=== PATIENT | female | born 1995 | race Caucasian/White ===

== ENCOUNTER 2017-10-05 20:15 | Emergency (ER) | payer MEDICAID, SELFPAY ==
[2017-10-05 21:27] VITALS: BP 128/91; PULSE 100; RESP 18; TEMP 37.7; O2SAT 100; BMI 21.0
--- NOTE | 2017-10-05 21:28 | HMH.EDUTC ---
[facility] [place]: Influenza Disposition: Home, Self-Care Condition on Discharge: Good Instructions: Influenza Additional Instructions: ? Start Tamiflu today if you are going to take it. Discussed risk and possible benefits. ? Lots of rest ? Increase Fluids water, Gatorade, powerade, pedialyte,if /toddler/child ? Alternate Tylenol and / or ibuprofen as discussed for fever, aches, chills x 24 hours without medication for symptoms ? Follow up IMMEDIATELY for new or worsening Symptoms OR no noticeable improvement over the next 48-72 hours, 911 for difficulty or breathing ? You or your child area contagious until no fever, aches, chills for 24 hours with medication for symptoms Prescriptions: Brompheniramine/Pseudoephed/Dm [Bromfed DM Cough Syrup 5mL] 10 ml PO Q4H PRN #200 syrup PRN Reason: Cough Oseltamivir Phosphate [Tamiflu 75mg Capsule] 75 mg PO BID #10 capsule Referrals: Fouzia Sherwood PA [Primary Care Provider] - Time of Disposition: 21:33 Medical Decision Making Vital Signs: 10/05/17 21:27 Temperature 99.9 F H Temperature Source Temporal Artery Scan Pulse Rate [Right] 100 H Respiratory Rate 18 Blood Pressure [Right Arm] 128/91 Blood Pressure Mean [Right Arm] 103 Blood Pressure Source [Right Arm] Automatic Cuff Blood Pressure Position [Right Arm] Sitting 02 Sat by Pulse Oximetry 100 Oxygen Delivery Method Room Air - Lab Data Lab Results 10/05/17 21:23: Influenza Type A Ag Negative, Influenza Type B Ag Positive A - Zak Inquiry Pt receiving controlled substance: No Zak was queried for this patient: No [facility] [place] - General Stated complaint: possible flu - History of Present Illness Provider Complaint: Patient state that she has not been feeling well for several days State that she was recently treated for sinus infection but has continued to get worse States that she has been having fever, body aches and sore throat along with cough that has worsened since yesterday - Related Data Previous Rx's Medication Instructions Recorded Brompheniramine/Pseudoephed/Dm 10 ml PO Q4H PRN #200 syrup 10/05/17 [Bromfed DM Cough Syrup 5mL] Oseltamivir Phosphate [Tamiflu 75 mg PO BID #10 capsule 10/05/17 75mg Capsule] Allergies Allergy/AdvReac Type Severity Reaction Status Date / Time miconazole [MICONAZOLE] Allergy Unknown I-ITCHING Unverified 09/20/17 14:54 [facility] History - *Social History Smoking Status: Never smoker Alcohol Intake: never Physical Exam - General General appearance: alert, in no apparent distress - Expanded ENT Exam Comment: Throat red, irritated - Respiratory Respiratory exam: Present: normal lung sounds bilaterally. Absent: respiratory distress - Cardiovascular Cardiovascular exam: Present: regular rate, normal rhythm. Absent: JVD - Neurological Exam Neurological exam: Present: alert, oriented X3
[2017-10-05 21:30] LABS: UTC Influenza A Antigen Negative (Negative); UTC Influenza B Antigen Positive (Negative)
--- NOTE | 2017-10-05 21:33 | ED_ITS ---
[facility] [place] Clinical Impression: Influenza Disposition: Home, Self-Care Condition on Discharge: Good Instructions: Influenza Additional Instructions: ? Start Tamiflu today if you are going to take it. Discussed risk and possible benefits. ? Lots of rest ? Increase Fluids water, Gatorade, powerade, pedialyte,if /toddler/child ? Alternate Tylenol and / or ibuprofen as discussed for fever, aches, chills x 24 hours without medication for symptoms ? Follow up IMMEDIATELY for new or worsening Symptoms OR no noticeable improvement over the next 48-72 hours, 911 for difficulty or breathing ? You or your child area contagious until no fever, aches, chills for 24 hours with medication for symptoms Prescriptions: Brompheniramine/Pseudoephed/Dm [Bromfed DM Cough Syrup 5mL] 10 ml PO Q4H PRN # 200 syrup PRN Reason: Cough Oseltamivir Phosphate [Tamiflu 75mg Capsule] 75 mg PO BID #10 capsule Referrals: Fouzia Sherwood PA [Primary Care Provider] - Time of Disposition: 21:33 Medical Decision Making Vital Signs: 10/05/17 21:27 Temperature 99.9 F H Temperature Source Temporal Artery Scan Pulse Rate [Right] 100 H Respiratory Rate 18 Blood Pressure [Right Arm] 128/91 Blood Pressure Mean [Right Arm] 103 Blood Pressure Source [Right Arm] Automatic Cuff Blood Pressure Position [Right Arm] Sitting 02 Sat by Pulse Oximetry 100 Oxygen Delivery Method Room Air - Lab Data Lab Results 10/05/17 21:23: Influenza Type A Ag Negative, Influenza Type B Ag Positive A - Zak Inquiry Pt receiving controlled substance: No Zak was queried for this patient: No [facility] [place] HPI - General Stated complaint: possible flu - History of Present Illness Provider Complaint: Patient state that she has not been feeling well for several days State that she was recently treated for sinus infection but has continued to get worse States that she has been having fever, body aches and sore throat along with cough that has worsened since yesterday - Related Data Previous Rx's Medication Instructions Recorded Brompheniramine/Pseudoephed/Dm 10 ml PO Q4H PRN #200 syrup 10/05/17 [Bromfed DM Cough Syrup 5mL] Oseltamivir Phosphate [Tamiflu 75 mg PO BID #10 capsule 10/05/17 75mg Capsule] Allergies Allergy/AdvReac Type Severity Reaction Status Date / Time miconazole [MICONAZOLE] Allergy Unknown I-ITCHING Unverified 09/20/17 14:54 [facility] History - *Social History Smoking Status: Never smoker Alcohol Intake: never Physical Exam - General General appearance: alert, in no apparent distress - Expanded ENT Exam Comment: Throat red, irritated - Respiratory Respiratory exam: Present: normal lung sounds bilaterally. Absent: respiratory distress - Cardiovascular Cardiovascular exam: Present: regular rate, normal rhythm. Absent: JVD - Neurological Exam Neurological exam: Present: alert, oriented X3
== END 2017-10-05 21:41 | disposition home or self-care (01) ==
PROVIDERS: Emergency Provider Nurse Practitioner; Family Provider Physician Assistant; PCP Physician Assistant
DX: J11.1 Influenza due to unidentified influenza virus with other respiratory manifestations (principal); Z88.8 Allergy status to other drugs, medicaments and biological substances
CPT/HCPCS: 87276; 87804; 99202

== ENCOUNTER → 2018-07-24 16:00 | Outpatient (CLI) | payer MEDICAID, SELFPAY ==
[2018-07-26 15:55] LABS: HIV Screen 4th Generation wRfx Non Reactive (Non Reactive); HSV 2 IgG, Type Spec <0.91 index (0.00-0.90); Hepatitis C Antibody <0.1 s/co ratio (0.0-0.9)
[2018-07-28 06:41] LABS: Neisseria gonorrhoeae, NAA Negative (Negative)
== END ==
PROVIDERS: PCP Physician Assistant; Visit Provider Nurse Practitioner Obstetrics & Gynecology
DX: Z11.3 Encounter for screening for infections with a predominantly sexual mode of transmission (principal)
CPT/HCPCS: 36415; 86695; 86696; 86703; 86790; 87380; 87491; 87591; G0432

== ENCOUNTER → 2018-09-25 10:42 | Outpatient (CLI) | payer MEDICAID, SELFPAY ==
--- NOTE | 2018-09-25 10:43 | US_ITS ---
US transvaginal HISTORY: Pelvic pain worse during cycle ITS.REASON: US T/V- Pelvic Pain ORDERING PHYSICIAN: Booker Bullock MD PATIENT AGE: 22 years Comparison: None FINDINGS: The uterus is 6 x 3 x 4 cm with a combined endometrial thickness of 4 mm. The uterus has an unremarkable appearance. Left ovary is 2 x 2 centimeters with blood flow demonstrated. Unremarkable. There is a 5 cm cystic lesion in the right adnexa which has a complex appearance with some debris and increased echogenicity along the anterior wall. No cul-de-sac fluid apparent. IMPRESSION: 5 cm complex left ovarian cyst with debris and increased echogenicity along the anterior wall. Suggest 6-8 week follow-up to confirm resolution. If this does not resolve then MRI may be needed.
== END ==
PROVIDERS: PCP Physician Assistant; Visit Provider Nurse Practitioner Obstetrics & Gynecology
DX: R10.2 Pelvic and perineal pain (principal)
CPT/HCPCS: 76830

== ENCOUNTER → 2018-10-17 15:02 | Outpatient (CLI) | payer MEDICAID, SELFPAY ==
[2018-10-17 15:30] LABS: Basophils % 0.5 % (0.1-2.0); Eosinophils # 0.1 K/mm3 (0.0-0.4); Eosinophils % 1.3 % (0.1-12.0); Hematocrit 40.8 % (37.0-47.0); Hemoglobin 13.6 g/dL (12.2-16.2); Lymphocytes # 1.9 K/mm3 (0.7-4.5); Lymphocytes % 25.8 % (10-50); Mean Corpuscular HGB Conc 33.4 g/dL (31.8-35.4); Mean Corpuscular Hemoglobin 31.8 pg (27.0-31.2); Mean Corpuscular Volume 95.2 fl (81-99); Mean Platelet Volume 6.6 fl (7.4-10.4); Monocytes # 0.2 K/mm3 (0.1-1.0); Monocytes % 3.2 % (1.7-9.3); Neutrophils # 5.1 K/mm3 (1.8-7.8); Neutrophils % 69.3 % (37.0-80.0); Platelet Count 294 K/mm3 (142-424); Red Blood Count 4.28 M/mm3 (4.20-5.40); Red Cell Distribution Width 12.4 % (11.5-17.5); White Blood Count 7.4 K/mm3 (4.8-10.8)
[2018-10-17 16:14] LABS: Blood Urea Nitrogen 15 mg/dL (7-18); Calcium 8.5 mg/dL (8.5-10.1); Carbon Dioxide 21 mmol/L (21.0-32.0); Chloride 104 mmol/L (98-107); Creatinine,Serum 0.85 mg/dL (0.55-1.02); Estimated Glomerular Filt Rate 82 ml/min (>60); GFR (African American) 99 ML/MIN (>60); Glucose 97 mg/dL (74-106); Sodium 139 mmol/L (136-145)
[2018-10-17 16:52] LABS: HCG Qualitative, Serum Negative (Negative)
== END ==
PROVIDERS: Visit Provider Nurse Practitioner Obstetrics & Gynecology
DX: Z01.818 Encounter for other preprocedural examination (principal)
CPT/HCPCS: 36415; 80048; 84703; 85025

== ENCOUNTER → 2019-03-15 16:11 | Outpatient (CLI) | payer MEDICAID, SELFPAY ==
--- NOTE | 2019-03-15 16:17 | XR_ITS ---
XR shoulder RT min 2V HISTORY: ITS.REASON: pain ORDERING PHYSICIAN: Jennifer Sunshine APRN PATIENT AGE: 23 years Comparison: None FINDINGS: No fracture or dislocation. No lytic or blastic change. There is normal mineralization. The joint spaces are well-preserved. No significant degenerative/arthritic changes. No erosive changes evident. IMPRESSION: Negative, no acute finding
--- NOTE | 2019-03-15 16:17 | XR_ITS ---
EXAM: XR cervical spine 3V HISTORY: ITS.REASON: pain ORDERING PHYSICIAN: Jennifer Sunshine APRN PATIENT AGE: 23 years COMPARISON: None FINDINGS: Normal alignment. No fracture or dislocation. No lytic or blastic change. There is mild head tilt toward the left and there is some straightening of the cervical lordosis nonspecific No significant degenerative change. The disc spaces are preserved. IMPRESSION: No acute finding
== END ==
PROVIDERS: PCP Nurse Practitioner Family; Visit Provider Nurse Practitioner Family
DX: M25.511 Pain in right shoulder (principal); M54.2 Cervicalgia
CPT/HCPCS: 72040; 73030

== ENCOUNTER 2019-04-19 15:00 | Outpatient (RCR) | payer MEDICAID, SELFPAY ==
--- NOTE | 2019-03-27 13:53 | HMH.PTOPEV ---
PT Outpatient Evaluation Rehab PT Outpatient Evaluation Start: 03/27/19 13:00 Freq: Status: Active Protocol: Document 03/27/19 13:37 CONCEPCIÓN (Rec: 03/27/19 13:53 PHORNE [id number]) Electronically Signed By Brian Alanis, PT 03/27/19 13:37 Outpatient Therapy Subjective History Subjective History Pt is 23 yowf who presents with c/o pain in the neck and right UE x ~ 1 mo S/P my mattress fell on me. Pt states that she was lifting her mattress and box springs with her left arm and trying to fix the bed slats with her right hand when the boxsprings slipped from her hand and landed on her right shld. She reports having pain ever since with burning and tingling into the right forearm and hand. She had x-ray performed of the right shld and c-spine with no abnormalities noted. She states, The shots they gave me helped a lot, but I didn't take the steroid the gave me to take. PMH: recent laprascopic surgery. Chief Complaint Pain,Weakness,Decreased [employer] Strength Symptom Type Sharp,Stabbing,Burning, Tingling Symptoms Relieved By Rest/Positioning Symptoms Aggravated By Physical Activity,Lifting Prior Functional Limitations None Current Functional Limitations Reaching,Lifting,Housework, Sleeping,Recreation Activity Symptom Description Constant but Variable Level of pain today (0-10) 4 Pain scale - at its worst (0-10) 9 Cervical Eval Palpation Cervical/Thoracic Palpation Findings Tenderness Posture Head/C-Spine Posture Sitting Position Neutral Position Head/C-Spine Posture Standing Position Neutral Position Passive Joint Mobility Cervical PIVM WNL: R OA L OA R AA L AA R C2/3 L C2/3 R C3/4 L C3/4 R C4/5 L C4/5 R C5/6 L C
== END 2019-04-19 15:05 | disposition home or self-care (01) ==
LOC: PT 15:00
PROVIDERS: Visit Provider Nurse Practitioner Family
DX: M25.511 Pain in right shoulder (principal); M54.2 Cervicalgia
CPT/HCPCS: 97010; 97014; 97110; 97140; 97163; G0283

== ENCOUNTER → 2019-07-24 12:59 | Outpatient (CLI) | payer MEDICAID, SELFPAY ==
--- NOTE | 2019-07-24 | XR_ITS ---
PROCEDURE: XR SHOULDER RT MIN 2V RIGHT SHOULDER ARTHROGRAM CLINICAL INDICATION: ARTHROGRAM Right shoulder pain with limited range of motion COMPARISON: MR SHOULDER RT W CON from 07/24/2019 FINDINGS: Technique: After timeout, following obtaining informed consent under aseptic conditions with local anesthesia with 1 percent buffered lidocaine, 22 gauge needle is inserted into the right shoulder joint via of the anterior approach. Approximately 10 mL of a mixture of Optiray 320, gadolinium, and lidocaine was injected into the capsule freely without complication or obvious extravasation.. The patient tolerated the procedure well without evidence of immediate complications and was and set to the MRI suite where MR arthrogram was performed. Internal and external rotation images are performed following exercise of the patient's shoulder. There was normal localization of contrast. No evidence of rotator cuff tear or adhesive capsulitis. IMPRESSION: Uneventful fluoroscopic guided right shoulder arthrogram showing no evidence of rotator cuff tear. Please see MR arthrogram report for further detail Dictated by: Alexsander Limon MD 07/24/2019 16:48 Electronically signed by Alexsander Limon MD in [place] 07/25/2019 05:58
--- NOTE | 2019-07-24 13:05 | MR_ITS ---
PROCEDURE: MR SHOULDER RT W CON CLINICAL INDICATION: evaluate for rotator cuff tear Shoulder pain in weakness, limited range of motion COMPARISON: IR ARTHROGRAM SHOULDER RT from 07/24/2019 XR SHOULDER RT MIN 2V from 07/24/2019 TECHNIQUE: Routine multiplanar multi echo sequences are performed following the intra-articular injection of a mixture of iodinated contrast, gadolinium, and lidocaine. Please see shoulder arthrogram report from the same day FINDINGS: There is no evidence of a full-thickness or complete rotator cuff tear. There is some mild thickening of the supraspinatus tendon with slight increase in T2 signal distally suggesting tendinopathy/tendinosis. The infraspinatus tendon, subscapularis tendon, and teres minor tendons have an unremarkable appearance. The signal intensity of the intra-articular fluid has a somewhat atypical appearance showing slight decreased intensity on the T1 fat sat and non-fat sat images and demonstrates marked decreased T2 signal. This is of questionable significance but could be seen with some acute intra-articular hemorrhage. One would not expect hyperacute hemorrhage to have this appearance. There was no complications apparent during the arthrogram. No obvious labral tear. There is a zone of increase T1 signal involving the cartilage of the glenoid of questionable significance. The bicipital tendon is in place. No fracture or dislocation. IMPRESSION: 1. There is some minimal surface irregularity involving the inferior surface of the supraspinatus tendon. This is of questionable clinical significance. A complete or full-thickness tear is not identified. No labral tear apparent. 2. Unusual signal intensity of the intra-articular fluid of uncertain significance but could be related underlying blood within the joint. Dictated by: Alexsander Limon MD 07/26/2019 10:49 Electronically signed by Alexsander Limon MD in [place] 07/26/2019 10:49
== END ==
PROVIDERS: PCP Physician Assistant; Visit Provider Orthopaedic Surgery
DX: M25.511 Pain in right shoulder (principal); S49.91XA Unspecified injury of right shoulder and upper arm, initial encounter
CPT/HCPCS: 73030; 73040; 73222; Q9967

== ENCOUNTER 2019-08-03 13:00 | Outpatient (RCR) | payer MEDICAID, SELFPAY ==
--- NOTE | 2019-06-18 15:31 | HMH.OTOPEV ---
OT Inpatient Evaluation Rehab OT Outpatient Eval Start: 06/18/19 15:11 Freq: Status: Active Protocol: Document 06/18/19 15:12 RMARSHALL (Rec: 06/18/19 15:28 [facility] [id number] Electronically Signed By Prince Tieno OT 06/18/19 15:12 Outpatient Therapy Subjective History Subjective History Pt is a 23 year old female who reports to therapy for inital evaluation to right shoulder. Pt explains she injured her shoulder in Jan, 2019 while trying to lift a mattress and box spring. Both the mattress and box spring fell onto the right shoulder causing immediate pain. Pt did completed physical therapy, but did stop participating. Pt does demonstrate with decreased AROM and strength at right shoulder. Pt will continue to be seen in order to address all deficits. Chief Complaint Pain,Stiff,Weakness Symptom Type Ache,Throb,Sharp,Dull,Burning, Numbness,Shooting Symptoms Relieved By Rest/Positioning Symptoms Aggravated By Physical Activity,Twisting, Lifting Prior Functional Limitations None Current Functional Limitations Reaching,Lifting,Housework, Dressing,Sleeping,Recreation Activity Symptom Description Constant but Variable Level of pain today (0-10) 7 Pain scale - at its best (0-10) 4 Pain scale - at its worst (0-10) 10 Shoulder/Elbow Eval Shoulder Objective Measurements Shoulder ROM Right Shoulder Abduction Active Range of 94 degrees Motion (degrees) Shoulder Flexion Active Range of Motion 110 degrees (degrees) Query Text: Shoulder External Rotation Active Range 62 degrees of Motion (degrees) Shoulder Internal Rotation Active Range 65 degrees of Motion (degrees) pain with active ROM shoulder exam right standard pain with passive ROM shoulder exam right standard decreased ROM shoulder exam standard right full ROM shoulder exam standard left Shoulder MMT Shoulder Abduction Strength Grade 4- Good- Shoulder Extension Strength Grade 4- Good- Shoulder Flexion Strength Grade 3+ Fair+ Shoulder External Rotation Strength 3+ Fair+ Grade Shoulder Internal Rotation S
== END 2019-08-03 13:05 | disposition home or self-care (01) ==
LOC: OT 13:00
PROVIDERS: PCP Nurse Practitioner Family; Visit Provider Nurse Practitioner Family
DX: M25.511 Pain in right shoulder (principal)
CPT/HCPCS: 97014; 97033; 97110; 97140; 97166; G0283

== ENCOUNTER → 2019-08-06 08:58 | Outpatient (POV) | payer MEDICAID, SELFPAY | PROVIDERS: Visit Provider Specialist | DX: M79.641 Pain in right hand (principal); R20.2 Paresthesia of skin | CPT/HCPCS: 95886; 95908 ==

== ENCOUNTER 2019-08-23 12:58 | Outpatient (RCR) | payer MEDICAID, SELFPAY ==
--- NOTE | 2019-08-23 13:38 | HMH.OTOPEV ---
OT Inpatient Evaluation Rehab OT Outpatient Eval Start: 08/23/19 13:27 Freq: Status: Active Protocol: Document 08/23/19 13:27 RMARSHALL (Rec: 08/23/19 13:[facility] [id number][facility] Electronically Signed By Prince Tineo OT 08/23/19 13:27 Outpatient Therapy Subjective History Subjective History Pt is a 23 year old female who was seen previoulsy by therapy. Prior she was unable to complete exercises due to pain; pt decided to hold with therapy until seeing ortho and having MRI completed. Pt was diagnsoed with R shoulder tendinopathy and had an injection from ortho. Pt continues to demonstrate with decreased AROM and strength at right shoulder. Pt did inform therapist her pain has improved slightly since beginning treatment with ortho . Pt will continue to be seen twice a week in order to address all deficits. Chief Complaint Pain,Stiff,Weakness Symptom Type Ache,Throb,Sharp,Dull,Shooting Symptoms Relieved By Nothing Symptoms Aggravated By Physical Activity,Lifting Prior Functional Limitations None Current Functional Limitations None,Reaching,Lifting, Housework,Dressing,Driving, Sleeping,Recreation Activity, Bending/Stooping Symptom Description Constant but Variable Level of pain today (0-10) 3 Pain scale - at its best (0-10) 2 Pain scale - at its worst (0-10) 10 Shoulder/Elbow Eval Shoulder Objective Measurements Shoulder ROM Right Shoulder ROM Limitations Muscle Weakness,Pain Shoulder Abduction Active Range of 100 degrees Motion (degrees) Shoulder Flexion Active Range of Motion 100 degrees (degrees) Query Text: Shoulder External Rotation Active Range 60 degrees of Motion (degrees) Shoulder Internal Rotation Active Range 58 degrees of Motion (degrees) pain with active ROM shoulder exam right standard pain with passive ROM shoulder exam right standard decreased ROM shoulder exam standard right Shoulder MMT Shoulder Abduction Strength Grade 3+ Fair+ Shoulder Extension Strength Grade 3+ Fair+ Shoulder Flexion Strength Grade 3+ Fair+ Shoulder External Rotati
== END 2019-08-23 12:59 | disposition home or self-care (01) ==
LOC: OT 12:58
PROVIDERS: Visit Provider Orthopaedic Surgery
DX: S49.91XA Unspecified injury of right shoulder and upper arm, initial encounter (principal); M25.511 Pain in right shoulder; R20.2 Paresthesia of skin
CPT/HCPCS: 97165

== ENCOUNTER → 2019-11-13 13:25 | Outpatient (CLI) | payer MEDICAID, SELFPAY ==
--- NOTE | 2019-11-13 13:26 | US_ITS ---
PROCEDURE: US TRANSVAGINAL CLINICAL INDICATION: pelvick pain Pelvic pain COMPARISON: TRANVAG US transvaginal from 09/25/2018 FINDINGS: UTERUS: 6cm x 3cmx 3cm with a combined endometrial thickness of 2.9mm LEFT OVARY: [id number] with a volume of 7.8ml. RIGHT OVARY: [id number] with a volume of 4.6ml. There are follicles on the left ovary including a 2 x 0.7 cm cyst. Blood flow is present bilaterally. Follicles are present on the right ovary is well with a 1.3 cm cyst. IMPRESSION: Small bilateral ovarian follicles with 2 cm left ovarian cyst and 1 cm right ovarian cyst Dictated by: Alexsander Limon MD 11/13/2019 17:27 Electronically signed by Alexsander Limon MD in [place] 11/13/2019 17:27
== END ==
PROVIDERS: PCP Physician Assistant; Visit Provider Nurse Practitioner Obstetrics & Gynecology
DX: R10.2 Pelvic and perineal pain (principal)
CPT/HCPCS: 76830

== ENCOUNTER → 2020-02-29 12:48 | Outpatient (CLI) | payer OTHER, SELFPAY ==
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
== END ==
PROVIDERS: PCP Physician Assistant; Visit Provider Physician Assistant
DX: M54.10 Radiculopathy, site unspecified (principal)
CPT/HCPCS: 72148; 76376

== ENCOUNTER 2020-04-29 15:00 | Outpatient (RCR) | payer OTHER, MEDICAID, SELFPAY ==
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
== END 2020-04-29 15:47 | disposition home or self-care (01) ==
LOC: PT 15:00
PROVIDERS: Visit Provider Nurse Practitioner Family
DX: M54.42 Lumbago with sciatica, left side (principal); G89.29 Other chronic pain; Z04.1 Encounter for examination and observation following transport accident
CPT/HCPCS: 97010; 97016; 97110; 97113; 97163

== ENCOUNTER 2020-08-17 16:56 | Emergency (ER) | payer MEDICAID, SELFPAY ==
[2020-08-17 17:10] VITALS: BP 124/82; PULSE 74; RESP 14; TEMP 36.9; O2SAT 100; BMI 19.0
--- NOTE | 2020-08-17 17:15 | HMH.EDUTC ---
[facility] [place] Disposition Clinical Impression: Encounter for laboratory testing for COVID-19 virus Disposition: Home, Self-Care Condition on Discharge: Good Instructions: Preventing the Spread of Coronavirus Discharge Instructions Additional Instructions: *Monitor Temp, Over the counter Motrin or Tylenol as directed/as needed Tylenol every 4 hours and Motrin every 6 hours (as long as your family doctor has told you that you can take it) for fever or pain. and straight to ER if unable to lower temp less than 101.0 after medication given *Warm salt water gargles may help to soothe the throat *Throat Lozenges *Warm fluids like tea with honey may help to soothe the throat *Sleep elevated *Humidifier/Vaporizer Follow up IMMEDIATELY for new or worsening symptoms or no Noticeable improvement over the next 48-72 hours. 911 for difficulty breathing or swallowing You was tested for today for COVID19 your test result should be back in the next 24-48 hours, you may call to the [facility] tomorrow to see if your test results are back and the result [phone] You was given a handout with instructions for Self Quarantine and Self isolation for while you wait on test results and what to do if they are positive If you are positive the Health Dept will be contacting you also Referrals: Fouzia Sherwood PA [Primary Care Provider] - As needed Forms: Work/School Release Time of Disposition: 17:16 Medical Decision Making - Zak Inquiry Pt receiving controlled substance: No Zak was queried for this patient: No Vital Signs: 08/17/20 17:10 Temperature 98.5 F Temperature Source Oral Pulse Rate [Left Radial] 74 Respiratory Rate 14 Blood Pressure [Right Arm] 124/82 Blood Pressure Mean [Right Arm] 96 Blood Pressure Source [Right Arm] Automatic Cuff Blood Pressure Position [Right Arm] Sitting 02 Sat by Pulse Oximetry 100 Oxygen Delivery Method Room Air [facility] [place] HPI - General Stated complaint: wants Covid test Time Seen by Provider: 08/17/20 17:15 Mode of Arrival: Ambulatory Source of Information: Patient Limitations: No Limitations Description of Symptoms (Recalled from Triage Doc. by RN): pt states her brother tested positive for covid, hasn't been in direct contact HEENT Symptoms (Recalled from RN notes): No Resp Symptoms (Recalled from RN notes): No Skin Symptoms (Recalled from RN notes): No MS Symptoms (Recalled from RN notes): No Functional Status (Recalled from RN notes): wnl - History of Present Illness Provider Complaint: Patient states that she came in to get a COVID test States that her brother recently tested positive for COVID but she hasnt been around him but has been around other family members and wanted to get tested to see if she has it - Related Data Home Medications Medication Instructions Recorded Confirmed No Known Home Medications 08/17/20 08/17/20 Allergies Allergy/AdvReac Type Severity Reaction Status Date / Time miconazole [MICONAZOLE] Allergy Unknown I-ITCHING Verified 08/17/20 17:15 metronidazole [From Flagyl] Allergy Verified 08/17/20 17:15 - Worker's Comp Is this a Worker's Comp case?: No Is this an [facility] Worker's Comp?: No Is this a [place] Worker's Comp?: No [facility] History - Hepatitis A Screen Drug use history?: No High risk sexual behaviors?: No History of sexually transmitted infection?: No Currently employed?: No Childcare worker?: No Do you have indoor plumbing?: Yes Do you have electricity?: Yes Attestation statement:: This patient has been screened for Hepatitis A risk factors. I have reviewed the patient's past medical history: Yes Medical History: Reports:: Anxiety, Asthma Denies:: Cancer, Diabetes Mellitus Type 1, Diabetes Mellitus Type 2, Internal Pacemaker, MRSA, Seizures Other Medical History: Denies: Blood Transfusion Reaction Laterality Cases: Bilateral: Myringotomy (Ear Tubes), Tonsillectomy Other Surgeries: Yes: Appendectomy, Cholecystectomy, Diagnostic Lap, Ot
[2020-08-17 17:16] VITALS: BP 124/82; PULSE 74; RESP 14; TEMP 36.9; O2SAT 100
== END 2020-08-17 17:21 | disposition home or self-care (01) ==
PROVIDERS: Emergency Provider Nurse Practitioner; PCP Physician Assistant
DX: U07.1 COVID-19 (principal); J45.909 Unspecified asthma, uncomplicated; F41.9 Anxiety disorder, unspecified; Z88.8 Allergy status to other drugs, medicaments and biological substances
CPT/HCPCS: 99202; U0003

== ENCOUNTER → 2020-11-10 12:57 | Outpatient (CLI) | payer MEDICAID, SELFPAY ==
--- NOTE | 2020-11-10 12:57 | US_ITS ---
PROCEDURE: US TRANSVAGINAL CLINICAL INDICATION: pelvic pain COMPARISON: US US TRANSVAGINAL from 11/13/2019 FINDINGS: The uterus is 6 x 3 x 3 cm with a combined endometrial thickness 8 mm. No uterine mass evident. There is right ovary is 5 x 4 cm. The left ovary is 2 x 2 cm. There is a complex cyst involving the right ovary measuring 4 x 3 cm with internal septations and some debris suggesting a hemorrhagic cyst. No cul-de-sac fluid evident. IMPRESSION: Enlarged right ovary with 4 cm complex cyst which may be a hemorrhagic cyst. Suggest follow-up to confirm resolution Dictated by: Alexsander Limon MD 11/11/2020 06:50 Alexsander Limon MD in [place] 11/11/2020 06:50
== END ==
PROVIDERS: PCP Physician Assistant; Visit Provider Nurse Practitioner Obstetrics & Gynecology
DX: R10.2 Pelvic and perineal pain (principal)
CPT/HCPCS: 76830

== ENCOUNTER 2020-12-09 20:34 | Emergency (ER) | payer MEDICAID, SELFPAY ==
[2020-12-09 20:35] VITALS: BP 132/99; PULSE 75; RESP 20; TEMP 36.9; O2SAT 100; BMI 18.1
[2020-12-09 20:50] LABS: Apearance,Urine Clear (Clear); Color,Urine Dark Yellow (Yellow); Protein,Urine Negative (Negative); Specific Gravity, Urine >= 1.030 (1.005-1.030)
[2020-12-09 20:51] LABS: Glucose,Urine (UA) Negative (Negative); Ketones,Urine Moderate (Negative)
[2020-12-09 20:52] LABS: Bilirubin,Urine 1+ (Negative); Blood, Urine 2+ (Negative); UTC Leukocyte Esterase,Urine 1+ (Negative); UTC Nitrate,Urine Negative (Negative); UTC Pregnancy Test, Urine Negative (Negative); Urobilinogen,Urine 0.2 EU/dl (0.2)
--- NOTE | 2020-12-09 20:58 | HMH.EDUTC ---
[facility] [place] Clinical Impression: Abdominal pain Qualifiers: Abdominal location: generalized Qualified Code(s): R10.84 - Generalized abdominal pain Disposition: Still a Patient Condition on Discharge: Fair Referrals: Jolie Cochran APRN [Nurse Practitioner] - Medical Decision Making - Medical Records Medical records reviewed: No: I reviewed the patient's medical records. - Zak Inquiry Pt receiving controlled substance: No Vital Signs: 12/09/20 20:35 Temperature 98.5 F Temperature Source Oral Pulse Rate [Right Brachial] 75 Respiratory Rate 20 Blood Pressure [Right Arm] 132/99 H Blood Pressure Mean [Right Arm] 110 Blood Pressure Source [Right Arm] Automatic Cuff Blood Pressure Position [Right Arm] Sitting 02 Sat by Pulse Oximetry 100 Oxygen Delivery Method Room Air - Lab Data Lab results reviewed: Yes: I reviewed the patient's lab results. Lab Results 12/09/20 20:37: Urine Color Dark yellow, Urine Appearance Clear, Urine pH 5.0, Ur Specific [place] >= 1.030, Urine Protein Negative, Urine Glucose (UA) Negative, Urine Ketones Moderate, Urine Blood 2+, Urine Nitrate Negative, Urine Bilirubin 1+ A, Urine Urobilinogen 0.2, Ur Leukocyte Esterase 1+ A, Tst Clinic Negative Orders (Tests/Meds): ORDERS Category Date Time Status XR acute abdomen series Stat Exams 12/09/20 20:37 Ordered Medical Decision Narrative: she was transferred to the er due to her abdominal pain, severe tenderness and abdominal distension. [facility] [place] HPI - General Stated complaint: lower abd, No BM for 1 wk Time Seen by Provider: 12/09/20 20:58 Mode of Arrival: Ambulatory Source of Information: Patient, Parent(s) Limitations: No Limitations Description of Symptoms (Recalled from Triage Doc. by RN): PATIENT C/O LOWER ABDOMINAL PAIN WITH NAUSEA. SHE STATES THE PAIN IS SHARP AND RADIATES TO HER BACK. SHE IS VERY TEARFUL AT THIS TIME AND IS RATING HER PAIN 10/10. SHE REPORTS HER LAST BOWEL MOVEMENT WAS APPROX 1 WEEK AGO HEENT Symptoms (Recalled from RN notes): No Resp Symptoms (Recalled from RN notes): No Skin Symptoms (Recalled from RN notes): No MS Symptoms (Recalled from RN notes): No Functional Status (Recalled from RN notes): WNL - History of Present Illness Provider Complaint: She c/o abdominal pain since around 1 hour before she came in here. She currently rates her pain as a 8/10. She states that she has a history of ovarian cyst. She also has trouble with constipation often. She c/o nausea. She denies any vomiting yet. She states that her last bm was around 1 week ago. She often goes several days between bm's, but this is a little longer than her usual. - Related Data Previous Rx's Medication Instructions Recorded levonorgestrel-ethinyl estradiol 1 tab PO DAILY #84 tab 10/16/20 0.1 mg-20 mcg tablet Allergies Allergy/AdvReac Type Severity Reaction Status Date / Time miconazole [MICONAZOLE] Allergy Unknown I-ITCHING Verified 11/04/20 15:02 metronidazole [From Flagyl] Allergy Verified 11/04/20 15:02 - Worker's Comp Is this a Worker's Comp case?: No [facility] History - Hepatitis A Screen Drug use history?: No High risk sexual behaviors?: No History of sexually transmitted infection?: No Currently employed?: No Childcare worker?: No Do you have indoor plumbing?: Yes Do you have electricity?: Yes Attestation statement:: This patient has been screened for Hepatitis A risk factors. I have reviewed the patient's past medical history: Yes Medical History: Reports:: Anxiety, Asthma Denies:: Cancer, Diabetes Mellitus Type 1, Diabetes Mellitus Type 2, Internal Pacemaker, MRSA, Seizures Other Medical History: Denies: Blood Transfusion Reaction Laterality Cases: Bilateral: Myringotomy (Ear Tubes), Tonsillectomy Other Surgeries: Yes: Appendectomy, Cholecystectomy, Diagnostic Lap, Other. No: Pacemaker Amputation: No Fractures: No Comment: cyst removed from left ovary, wisdom teeth remov
--- NOTE | 2020-12-09 21:00 | PC.NURSE ---
PATIENT SENT TO ER PER LIZET AMBROSE APRN FOR FURTHER EVALUATION. REPORT GIVEN TO Deana KEY RN
[2020-12-09 21:02] VITALS: BP 148/88; PULSE 71; RESP 20; TEMP 36.8; O2SAT 97; BMI 18.2
[2020-12-09 21:03] LABS: Microscopic, Urine URINE MICROSCOPIC (MICROSCOPIC)
[2020-12-09 21:05] VITALS: BP 133/87; PULSE 67; O2SAT 98
--- NOTE | 2020-12-09 21:07 | CT_ITS ---
PROCEDURE: CT ABDOMEN PELVIS W CON CLINICAL INDICATION: ABD PAIN Lower abdominal pain COMPARISON: CT ABDPELW/O CT ABD PELVIS W/O CONTRAST from 01/24/2015 MR MR LUMBAR SPINE WO CON from 02/29/2020 TECHNIQUE: IV Contrast: 75ML Isovue 370 Oral Contrast None Axial images obtained with sagittal and coronal reformats. All CT scans at the facility use one or more dose reduction, viz: automated exposure control, ma/kV adjustment per patient size (including targeted exams where dose is matched to indication, i.e. head), or iterative reconstruction technique. FINDINGS: LOWER THORAX: No acute finding ABDOMEN & PELVIS: There are at least 2 small hypoattenuating lesions in the hepatic dome centrally on left measuring up to 3 mm and may represent hepatic cysts. There has been a prior cholecystectomy. The spleen, adrenal glands, and pancreas have an unremarkable appearance. 8 mm hypodensity involves the right kidney possibly due to small cyst. No renal or ureteral calculi. No hydronephrosis. There is a moderate amount of retained colonic feces. Prior appendectomy. No intestinal obstruction or free air. This 12 mm right adnexal cystic lesion with enhancing thin wall. Minimal amount of fluid in the cul-de-sac. No acute bony findings. IMPRESSION: 1. No acute finding. 2. Small right ovarian cyst with thin wall enhancement may represent a corpus luteum cyst. 3. Suspect small right renal cyst which may be confirmed with ultrasound if clinically desired. Dictated by: Alexsander Limon MD 12/10/2020 06:16 Alexsander Limon MD in [place] 12/10/2020 06:16
[2020-12-09 21:14] LABS: Appearance,Urine CLEAR (Clear); Blood, Urine 2+ (Negative); Color,Urine YELLOW (Yellow); Glucose,Urine (UA) Negative (Negative); Ketones,Urine 1+ (Negative); Leukocyte Esterase,Urine 1+ (Negative); Nitrate,Urine Negative (Negative); PH,Urine 5.5 (5.0-8.5); Protein,Urine Negative (Negative); Specific Gravity, Urine >= 1.030 (1.005-1.030); Urobilinogen,Urine 0.2 EU/dl (0.2)
[2020-12-09 21:19] LABS: Basophils # 0.1 K/mm3 (0-0.2); Basophils % 0.5 % (0.1-2.0); Eosinophils # 0.1 K/mm3 (0.0-0.4); Eosinophils % 0.8 % (0.1-12.0); Hematocrit 46.6 % (37.0-47.0); Lymphocytes # 2.3 K/mm3 (0.7-4.5); Mean Corpuscular HGB Conc 32.1 g/dL (31.8-35.4); Mean Corpuscular Hemoglobin 31.8 pg (27.0-31.2); Mean Corpuscular Volume 99.1 fl (81-99); Mean Platelet Volume 7.6 fl (7.4-10.4); Monocytes # 0.2 K/mm3 (0.1-1.0); Monocytes % 2.1 % (1.7-9.3); Neutrophils # 6.9 K/mm3 (1.8-7.8); Neutrophils % 72.7 % (37.0-80.0); Platelet Count 323 K/mm3 (142-424); Red Cell Distribution Width 12.5 % (11.5-17.5); White Blood Count 9.5 K/mm3 (4.8-10.8)
[2020-12-09 21:23] LABS: Bilirubin,Urine Negative (Negative)
[2020-12-09 21:27] LABS: Lipase 34 U/L (23-300)
[2020-12-09 21:28] LABS: Alanine Aminotransferase 14 U/L (12-78); Albumin Level 5.1 g/dl (3.5-5.0); Albumin/Globulin Ratio 1.4 (1.1-1.8); Alkaline Phosphatase 83 U/L (38-126); Amylase 74 U/L (30-110); Anion Gap 15.6 mEq/L (5-15); Aspartate Amino Transferase 26 U/L (14-36); Bilirubin,Total 0.6 mg/dl (0.2-1.3); Blood Urea Nitrogen 11 mg/dl (7-17); Calcium 9.5 mg/dl (8.4-10.2); Carbon Dioxide 22 mmol/L (22.0-30.0); Chloride 105 mmol/L (98-107); Creatinine Clearance Estimated 67 mL/min (50-200); Estimated Glomerular Filt Rate 75 ml/min (>60); GFR (African American) 91 ML/MIN (>60); Globulin 3.6 g/dL (1.3-3.2); Glucose 116 mg/dl (74-100); Potassium 3.6 mmoL/L (3.5-5.1); Sodium 139 mmol/L (136-145); Total Protein,Serum 8.7 g/dl (6.3-8.2)
[2020-12-09 21:34] LABS: C-Reactive Protein 1.4 mg/L (0-4)
[2020-12-09 21:34] LABS: Amorphous Sediment,Urine 1+ /lpf; Bacteria,Urine 2+ /lpf; Calcium Oxalate Crystals,Urine 1+ /lpf; Mucus,Urine 1+ /lpf
[2020-12-09 21:35] VITALS: BP 136/88; PULSE 88; O2SAT 100
[2020-12-09 21:52] LABS: Procalcitonin < 0.030 ng/mL (0.0-2.0)
[2020-12-09 21:59] LABS: Erythrocyte Sedimentation Rate 11 mm/hr (0-20)
[2020-12-09 22:05] VITALS: BP 107/72; PULSE 73; O2SAT 100
--- NOTE | 2020-12-09 23:03 | HMH.EDNVD ---
ED Disposition Clinical Impression: Abdominal pain Qualifiers: Abdominal location: generalized Qualified Code(s): R10.84 - Generalized abdominal pain Ovarian cyst Qualifiers: Laterality: right Qualified Code(s): N83.201 - Unspecified ovarian cyst, right side Disposition: Home, Self-Care Condition on Discharge: Good Instructions: DI for Ovarian Cyst Additional Instructions: call dr bullock this am for follow up Referrals: Jolie Cochran APRN [Nurse Practitioner] - Booker Bullock MD [Staff Physician] - - Critical Care Critical Care Time: No Attestation: On 12/09/20, the high probability of a clinically significant, sudden or life threatening deterioration of the following system(s) required my full and direct attention, intervention and personal management. The time I documented below is in addition to time spent performing reported procedures but includes the following listed in this critical care notation. Medical Decision Making - Medical Records Medical records reviewed: Yes: I reviewed the patient's medical records. - Zak Inquiry Pt receiving controlled substance: No Vital Signs: 12/09/20 20:35 12/09/20 21:02 12/09/20 21:05 Temperature 98.5 F 98.3 F Temperature Source Oral Oral Pulse Rate [Right Brachial] 75 71 67 Respiratory Rate 20 20 Blood Pressure [Right Arm] 132/99 H 148/88 H 133/87 Blood Pressure Mean [Right Arm] 110 108 102 Blood Pressure Source [Right Arm] Automatic Cuff Blood Pressure Position [Right Arm] Sitting 02 Sat by Pulse Oximetry 100 97 98 Oxygen Delivery Method Room Air 12/09/20 21:35 12/09/20 22:05 Temperature Temperature Source Pulse Rate [Right Brachial] 88 73 Respiratory Rate Blood Pressure [Right Arm] 136/88 107/72 L Blood Pressure Mean [Right Arm] 104 83 Blood Pressure Source [Right Arm] Blood Pressure Position [Right Arm] 02 Sat by Pulse Oximetry 100 100 Oxygen Delivery Method - Lab Data Lab results reviewed: Yes: I reviewed the patient's lab results. Lab Results 12/09/20 20:37: Urine Color Dark yellow, Urine Appearance Clear, Urine pH 5.0, Ur Specific [place] >= 1.030, Urine Protein Negative, Urine Glucose (UA) Negative, Urine Ketones Moderate, Urine Blood 2+, Urine Nitrate Negative, Urine Bilirubin 1+ A, Urine Urobilinogen 0.2, Ur Leukocyte Esterase 1+ A, Tst Clinic Negative 12/09/20 20:45: Urine Color Yellow, Urine Appearance Clear, Urine pH 5.5, Ur Specific [place] >= 1.030, Urine Protein Negative, Urine Glucose (UA) Negative, Urine Ketones 1+, Urine Blood 2+, Urine Nitrate Negative, Urine Bilirubin Negative, Urine Urobilinogen 0.2, Ur Leukocyte Esterase 1+ A, Urine RBC 3-5, Urine WBC 5-10, Ur Squamous Epith Cells 3-5, Calcium Oxalate Crystal 1+, Amorphous Sediment 1+, Urine Bacteria 2+, Urine Mucus 1+ 12/09/20 21:00: WBC 9.5, RBC 4.70, Hgb 15.0, Hct 46.6, MCV 99.1 H, MCH 31.8 H, MCHC 32.1, RDW 12.5, Plt Count 323, MPV 7.6, Neut % (Auto) 72.7, Lymph % (Auto) 24.0, [place] % (Auto) 2.1, Eos % (Auto) 0.8, Baso % (Auto) 0.5, Neut # (Auto) 6.9, Lymph # (Auto) 2.3, [place] # (Auto) 0.2, Eos # (Auto) 0.1, Baso # (Auto) 0.1, ESR 11 12/09/20 21:00: Sodium 139, Potassium 3.6, Chloride 105, Carbon Dioxide 22, Anion Gap 15.6 H, BUN 11, Creatinine 0.90, Estimated Creat Clear 67, Estimated GFR 75, Est GFR ( Amer) 91, Glucose 116 H, Calcium 9.5, Total Bilirubin 0.6, AST 26, ALT 14, Alkaline Phosphatase 83, C-Reactive Protein 1.4, Total Protein 8.7 H, Albumin 5.1 H, Globulin 3.6 H, Albumin/Globulin Ratio 1.4, Amylase 74, Procalcitonin < 0.030 12/09/20 21:00: Lipase 34 Result diagrams: 12/09/20 21:00 12/09/20 21:00 Orders (Tests/Meds): ED MEDICATIONS Generic Name Dose Route Start Last Admin Trade Name Freq PRN Reason Stop Dose Admin Sodium Chloride 1,000 mls @ 999 mls/hr 12/09/20 21:15 12/09/20 21:11 Sod Chlor 0.9% 1000ml Bag IV 12/09/20 22:15 999 mls/hr .Q1H1M RUBÉN Administration Sodium Chloride 1,000 mls @ 999 mls/hr 03
[2020-12-10 00:46] VITALS: BP 118/74; PULSE 72; RESP 16; TEMP 36.8; O2SAT 98
== END 2020-12-10 00:50 | disposition home or self-care (01) ==
LOC: UTC 20:38 → ER 20:59
PROVIDERS: Emergency Provider Nurse Practitioner Family; PCP Emergency Medicine
DX: R10.84 Generalized abdominal pain (principal); N83.201 Unspecified ovarian cyst, right side; F41.9 Anxiety disorder, unspecified; J45.909 Unspecified asthma, uncomplicated
CPT/HCPCS: 74177; 80053; 81001; 81003; 81025; 82150; 83690; 84145; 85025; 85651; 86140; 87086; 96365; 96366; 96375; 99283; J2405; Q9967

== ENCOUNTER 2021-03-19 13:30 | Outpatient (RCR) | payer MEDICAID, SELFPAY ==
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
--- NOTE | 2021-01-09 15:58 | HMH.RHREAS ---
Rehab Reassessment Rehab OP Re-assessment Start: 01/09/21 15:45 Freq: Status: Active Protocol: Document 01/09/21 15:46 CONCEPCIÓN (Rec: 01/09/21 15:56 PHOSTACIE [id number]) Electronically Signed By Brian Alanis, PT 01/09/21 15:46 Rehab Re-assessment Subjective Subjective Pt continues to c/o pain with all activities at home ( walking, housework, ADL's), but does feel her walking has improved a little. Objective Objective Notes Lumbar AROM (in deg): Flex= 0- 25, Ext= 0-12, R SB= 0-14, L SB= 0-12. Oswestry Low Back Pain Disability Questionnaire: 57% (Severe Disability Range 41%- 60%) Assessment Progress Assessment Progressing as Expected Assessment Notes Pt has shown some improvements in AROM of lumbar spine overall, but continues to have sereve difficulty in clinic with rolling to/from supine/ prone and squatting. Continues to c/o severe pain with certain tasks and Oswestry score shows severe disability related to pain as noted above . Patient goals met STG: all Goals Not Met LTG: None Revised Goals None Plan Plan Continue per initial POC. Frequency of Therapy 2-3 x/wk Duration of therapy 8 wks Time and Billing Re-Eval Time 15 Re-Eval Billing Units 1 PHYSICIAN CERTIFICATION: I certify the specified therapy services for Estella Wang are required, authorized, and reviewed every 30 days.
--- NOTE | 2021-02-06 14:50 | HMH.RHREAS ---
Rehab Reassessment Rehab OP Re-assessment Start: 01/09/21 15:45 Freq: Status: Active Protocol: Document 02/06/21 14:46 CONCEPCIÓN (Rec: 02/06/21 14:50 PHOSTACIE [id number]) Electronically Signed By Brian Alanis, PT 02/06/21 14:46 Rehab Re-assessment Subjective Subjective Pt reports she continues to have pain and tenderness to palpation across the lower lumbar spine. Objective Objective Notes Lumbar AROM (in deg): Flex= 0- 36, Ext= 0-18, R SB= 0-16, L SB= 0-15. Palpation tenderness: B lumbar paraspinals and B SI jt 2/4. Assessment Progress Assessment Progressing as Expected Assessment Notes Pt showing steady improvement with AROM of the lumbar spine since last reassessment. Continues to c/o pain with movement. Anxiety increases pain during certain activity, especially sqatting and forward flexion. Patient goals met ST,2,3,4,5 Goals Not Met LT,2,3,4,5,6 Revised Goals None Plan Plan Continue per initial POC. Frequency of Therapy 2-3 x/wk Duration of therapy 8 wks Time and Billing Re-Eval Time 15 Re-Eval Billing Units 1 PHYSICIAN CERTIFICATION: I certify the specified therapy services for Estella Wang are required, authorized, and reviewed every 30 days.
--- NOTE | 2021-03-03 15:06 | HMH.RHREAS ---
Rehab Reassessment Rehab OP Re-assessment Start: 01/09/21 15:45 Freq: Status: Active Protocol: Document 03/03/21 15:00 [email or web address] (Rec: 03/03/21 15:06 PHOSTACIE [id number]) Electronically Signed By rBian Alanis, PT 03/03/21 15:00 Rehab Re-assessment Subjective Subjective Pt reports she has been walking her dog more and able to go longer distance, but continues to have pain. Objective Objective Notes Lumbar AROM (in deg): FLex= 0- 50, Ext= 0-18, R SB= 0-20, L SB= 0-15. B seated sciatic tension slump test is positive. Pain with forward flex or ext: 6/10. Assessment Progress Assessment Progressing as Expected Assessment Notes Pt continues to improve endurance overall especially with walking. She continues to have worse pain with walking up/down hills and forward flex in standing. She has increased pain with further walking distances. Patient goals met ST,2,3,4,5 Goals Not Met LT,2,3,4,5,6 Revised Goals None Plan Plan Continue per initial POC. Frequency of Therapy 2-3 x/wk Duration of therapy 8 wks Time and Billing Re-Eval Time 15 Re-Eval Billing Units 1 PHYSICIAN CERTIFICATION: I certify the specified therapy services for Estella Wang are required, authorized, and reviewed every 30 days.
== END 2021-03-19 13:35 | disposition home or self-care (01) ==
LOC: PT 13:30
PROVIDERS: PCP Emergency Medicine; Visit Provider Nurse Practitioner Family
DX: M54.9 Dorsalgia, unspecified (principal)
CPT/HCPCS: 97010; 97014; 97110; 97113; 97140; 97163; 97164; G0283

== ENCOUNTER → 2021-06-12 17:49 | Outpatient (CLI) | payer MEDICAID, SELFPAY | PROVIDERS: Visit Provider Internal Medicine Adolescent Medicine | DX: R35.0 Frequency of micturition (principal) | CPT/HCPCS: 87086 ==

== ENCOUNTER 2021-06-20 12:09 | Emergency (ER) | payer MEDICAID, SELFPAY ==
[2021-06-20 13:40] VITALS: BP 117/35; PULSE 99; RESP 18; TEMP 37.2; O2SAT 99; BMI 18.4
--- NOTE | 2021-06-20 14:14 | HMH.EDUTC ---
[facility] [place] Disposition Clinical Impression: Exposure to COVID-19 virus Disposition: Home, Self-Care Condition on Discharge: Good Instructions: DI for COVID-19 (Suspected or Confirmed ), Preventing the Spread of Coronavirus Discharge Instructions Additional Instructions: Drink plenty of fluids. Take tylenol for pain or fever. Return if you begin to have difficulty breathing. Follow up with your regular doctor. GO TO THE ER FOR ANY WORSENING SYMPTOMS Quarantine until you know the results of your covid-19 test. If it is positive, the health department should call you and give you further instructions about your length of Quarantine and other things. Notify your school or workplace of your results and follow their instructions regarding return to work/school. Prescriptions: Brompheniramine/Pseudoephed/Dm [Bromfed Dm Cough Syrup] 5 ml PO Q6HP PRN #240 ml PRN Reason: Cough Transmission [facility]: [facility] Ondansetron [Zofran 4mg ODT] 4 mg PO DAILYP PRN #12 tab PRN Reason: Nausea Transmission Status: [facility] Referrals: Barry Payan MD [Primary Care Provider] - Time of Disposition: 14:15 Medical Decision Making - Medical Records Medical records reviewed: No: I reviewed the patient's medical records. - Zak Inquiry Pt receiving controlled substance: No Vital Signs: 06/20/21 13:40 06/20/21 14:31 Temperature 98.9 F 98.9 F Temperature Source Oral Oral Pulse Rate 99 H Pulse Rate [Apical] 99 H Respiratory Rate 18 18 Blood Pressure 117/68 Blood Pressure [Right Arm] 117/35 L Blood Pressure Mean [Right Arm] 62 Blood Pressure Source Automatic Cuff Blood Pressure Source [Right Arm] Automatic Cuff Blood Pressure Position Sitting Blood Pressure Position [Right Arm] Sitting 02 Sat by Pulse Oximetry 99 Oxygen Delivery Method Room Air Room Air Orders (Tests/Meds): ORDERS Category Date Time Status Covid-19 Nasal PCR ([facility]) Routine Lab 06/20/21 13:35 Received [facility] [place] HPI - General Stated complaint: covid test Time Seen by Provider: 06/20/21 14:00 Mode of Arrival: Ambulatory Source of Information: Patient Limitations: No Limitations Description of Symptoms (Recalled from Triage Doc. by RN): tired. Possible covid exposure HEENT Symptoms (Recalled from RN notes): No Resp Symptoms (Recalled from RN notes): No Skin Symptoms (Recalled from RN notes): No MS Symptoms (Recalled from RN notes): No Functional Status (Recalled from RN notes): na - History of Present Illness Provider Complaint: She was exposed to covid-19 4 days ago. She denies any symptoms. - Related Data Home Medications Medication Instructions Recorded Confirmed Levonorgestrel/Ethin.estradiol 1 tab PO DAILY 12/09/20 12/16/20 [Orsythia-28 Tablet] Previous Rx's Medication Instructions Recorded norgestimate 0.25 mg-ethinyl 1 tab PO DAILY #84 tab 12/17/20 estradiol 35 mcg tablet Brompheniramine/Pseudoephed/Dm 5 ml PO Q6HP PRN #240 ml 06/20/21 [Bromfed Dm Cough Syrup] Ondansetron [Zofran 4mg ODT] 4 mg PO DAILYP PRN #12 tab 06/20/21 Allergies Allergy/AdvReac Type Severity Reaction Status Date / Time miconazole [MICONAZOLE] Allergy Unknown I-ITCHING Verified 12/16/20 16:00 metronidazole [From Flagyl] Allergy Verified 12/16/20 16:00 - Worker's Comp Is this a Worker's Comp case?: No [facility] History - Hepatitis A Screen Drug use history?: No High risk sexual behaviors?: No History of sexually transmitted infection?: No Currently employed?: No Childcare worker?: No Do you have indoor plumbing?: Yes Do you have electricity?: Yes Attestation statement:: This patient has been screened for Hepatitis A risk factors. I have reviewed the patient's past medical history: Yes Medical History: Reports:: Anxiety, Asthma Denies:: Cancer, Diabetes Mellitus Type 1, Diabetes Mellitus Type 2, Internal Pacemaker, MRSA, Seizures Other Medi
[2021-06-20 14:31] VITALS: BP 117/68; PULSE 99; RESP 18; TEMP 37.2; O2SAT 99
== END 2021-06-20 14:32 | disposition home or self-care (01) ==
PROVIDERS: Emergency Provider Nurse Practitioner Family; PCP Internal Medicine Adolescent Medicine
DX: Z20.822 Contact with and (suspected) exposure to COVID-19 (principal); R53.1 Weakness; F41.9 Anxiety disorder, unspecified; J45.909 Unspecified asthma, uncomplicated
CPT/HCPCS: 99202; C9803; G0463; U0003; U0005

== ENCOUNTER → 2021-08-14 10:25 | Outpatient (CLI) | payer MEDICAID, SELFPAY ==
--- NOTE | 2021-08-14 10:25 | US_ITS ---
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 Right ovary is 2 2 cm in the left ovary is 2 x 2 cm. No adnexal mass, uterine mass, or cul-de-sac fluid apparent. IMPRESSION: Negative pelvic ultrasound Dictated by: Alexsander Limon MD 08/15/2021 07:56 Alexsander Limon MD in [place] 08/15/2021 07:56
== END ==
PROVIDERS: PCP Internal Medicine Adolescent Medicine; Visit Provider Nurse Practitioner Obstetrics & Gynecology
DX: R10.2 Pelvic and perineal pain (principal)
CPT/HCPCS: 76830

== ENCOUNTER 2021-12-01 16:12 | Emergency (ER) | payer MEDICAID, SELFPAY ==
[2021-12-01 16:13] VITALS: BP 102/77; PULSE 79; RESP 16; TEMP 36.8; O2SAT 99; BMI 19.0
--- NOTE | 2021-12-01 17:07 | HMH.EDUTC ---
[facility] [place] Clinical Impression: Finger problem Disposition: Home, Self-Care Condition on Discharge: Good Additional Instructions: Continue medication as prescribed by your family doctor Return if needed Follow up with Dermatology if no improvement or any worsening of symptoms Straight to ER if any life threatening symptoms Referrals: Jolie Cochran APRN [Primary Care Provider] - As needed Balbina Duenas MD [Referring] - Time of Disposition: 17:18 Medical Decision Making - Zak Inquiry Pt receiving controlled substance: No Zak was queried for this patient: No Vital Signs: 12/01/21 16:13 Temperature 98.3 F Temperature Source Oral Pulse Rate [Right] 79 Respiratory Rate 16 Blood Pressure [Right Arm] 102/77 L Blood Pressure Mean [Right Arm] 85 Blood Pressure Source [Right Arm] Automatic Cuff Blood Pressure Position [Right Arm] Sitting 02 Sat by Pulse Oximetry 99 Oxygen Delivery Method Room Air [facility] [place] - General Stated complaint: spot on R index finer Time Seen by Provider: 12/01/21 17:08 Mode of Arrival: Ambulatory Source of Information: Patient Limitations: No Limitations Description of Symptoms (Recalled from Triage Doc. by RN): pt finger is swollen and sore. Advises she seen Rosemarie in the office yesterday and she would like a second opinion today HEENT Symptoms (Recalled from RN notes): No Resp Symptoms (Recalled from RN notes): No Skin Symptoms (Recalled from RN notes): Yes (sore and swollen finger) MS Symptoms (Recalled from RN notes): No Functional Status (Recalled from RN notes): na - History of Present Illness Provider Complaint: Patient states that she has a odd blister like lesion on her right index finger and she seen her PCP yesterday and they give her some medication States that she was unsure and she wanted to have it looked at again to get a second opinion - Related Data Home Medications Medication Instructions Recorded Confirmed loratadine 10 mg tablet 10 mg PO DAILY 08/11/21 08/11/21 Previous Rx's Medication Instructions Recorded levonorgestrel 0.1 mg-ethinyl 1 tab PO DAILY #28 tab 08/11/21 estradiol 20 mcg chewable tablet linaclotide 72 mcg capsule 72 mcg PO DAILY #90 cap 08/11/21 Allergies Allergy/AdvReac Type Severity Reaction Status Date / Time miconazole [MICONAZOLE] Allergy Unknown I-ITCHING Verified 08/11/21 14:07 metronidazole [From Flagyl] Allergy Verified 08/11/21 14:07 - Worker's Comp Is this a Worker's Comp case?: No [facility] History - Hepatitis A Screen Drug use history?: No High risk sexual behaviors?: No History of sexually transmitted infection?: No Currently employed?: No Childcare worker?: No Do you have indoor plumbing?: Yes Do you have electricity?: Yes Attestation statement:: This patient has been screened for Hepatitis A risk factors. I have reviewed the patient's past medical history: Yes Medical History: Reports:: Anxiety, Asthma Denies:: Cancer, Diabetes Mellitus Type 1, Diabetes Mellitus Type 2, Internal Pacemaker, MRSA, Seizures Other Medical History: Denies: Blood Transfusion Reaction Laterality Cases: Bilateral: Myringotomy (Ear Tubes), Tonsillectomy Other Surgeries: Yes: Appendectomy, Cholecystectomy, Diagnostic Lap, Other. No: Pacemaker Amputation: No Fractures: No Comment: cyst removed from left ovary, wisdom teeth removed. Right Ovarian Cystectomy - Social History Smoking Status: Never smoker Alcohol Intake: never Alcohol Intake Frequency:: holidays/special occasions only Substance Use Type: denies use Occupational Status: other Housing: house Household Members: family - Psychiatric History Pschychiatric History:: Reports:: Anxiety Family Hx:: Coronary Artery Disease, Heart Attack ROS Obtained: Yes All systems reviewed & no additional complaints, Yes Systems reviewed as appropriate & no additional complaints - Constitutional Constitutional: Reports system reviewed and no additional complai
[2021-12-01 17:29] VITALS: BP 102/77; PULSE 79; RESP 16; TEMP 36.8; O2SAT 99
== END 2021-12-01 17:29 | disposition home or self-care (01) ==
PROVIDERS: Emergency Provider Nurse Practitioner; PCP Nurse Practitioner Family
DX: D48.5 Neoplasm of uncertain behavior of skin (principal)
CPT/HCPCS: 99211; G0463

== ENCOUNTER 2021-12-30 10:55 | Emergency (ER) | payer MEDICAID, SELFPAY ==
[2021-12-30 13:52] VITALS: BP 0/0; PULSE 0; RESP 0; TEMP -17.7; TEMP 0
== END 2021-12-30 13:55 | disposition left against medical advice (07) ==
PROVIDERS: Emergency Provider Nurse Practitioner Family; PCP Nurse Practitioner Family
DX: Z53.21 Procedure and treatment not carried out due to patient leaving prior to being seen by health care provider (principal)

== ENCOUNTER 2021-12-30 17:01 | Emergency (ER) | payer MEDICAID, SELFPAY ==
[2021-12-30 19:52] VITALS: BP 0/0; PULSE 0; RESP 0; TEMP -17.7; TEMP 0; O2SAT 0
== END 2021-12-30 19:54 | disposition left against medical advice (07) ==
LOC: ER 17:06
PROVIDERS: Emergency Provider Emergency Medicine; PCP Nurse Practitioner Family
DX: Z53.21 Procedure and treatment not carried out due to patient leaving prior to being seen by health care provider (principal)
CPT/HCPCS: 99211

== ENCOUNTER 2022-07-15 11:44 | Emergency (ER) | payer MEDICAID, SELFPAY ==
[2022-07-15 12:55] VITALS: BP 116/75; PULSE 67; RESP 20; TEMP 36.8; O2SAT 100; BMI 19.3
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
[2022-07-15 13:35] VITALS: BP 116/75; PULSE 67; RESP 20; TEMP 36.8; O2SAT 100
[2022-07-15 19:32] LABS: UTC Strep Screen (Rapid) Negative (Negative)
== END 2022-07-15 13:39 | disposition home or self-care (01) ==
PROVIDERS: Emergency Provider Nurse Practitioner Family; PCP Nurse Practitioner Family
DX: J06.9 Acute upper respiratory infection, unspecified (principal)
CPT/HCPCS: 87880; 99212; G0463

== ENCOUNTER 2022-07-18 21:43 | Emergency (ER) | payer MEDICAID, SELFPAY ==
[2022-07-18 21:44] VITALS: BP 114/86; PULSE 83; RESP 14; TEMP 36.9; O2SAT 100; BMI 19.3
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
--- NOTE | 2022-07-18 22:08 | CT_ITS ---
PROCEDURE INFORMATION: Exam: CT Head Without Contrast Exam date and time: 07/18/2022 10:55 PM Age: 26 years old Clinical indication: Pain; Headache not specified TECHNIQUE: Imaging protocol: Computed tomography of the head without contrast. Radiation optimization: All CT scans at this facility use at least one of these dose optimization techniques: automated exposure control; mA and/or kV adjustment per patient size (includes targeted exams where dose is matched to clinical indication); or iterative reconstruction. COMPARISON: CT HEAD/BRAIN WO CON 10/26/2019 11:01 PM FINDINGS: Brain: Normal. No hemorrhage. Unremarkable white matter. No mass effect. Cerebral ventricles: No ventriculomegaly. Paranasal sinuses: Visualized sinuses are unremarkable. No fluid levels. Mastoid air cells: Visualized mastoid air cells are well aerated. Bones/joints: Unremarkable. No acute fracture. Soft tissues: Unremarkable. IMPRESSION: No acute intracranial abnormality.
--- NOTE | 2022-07-18 22:08 | CT_ITS ---
PROCEDURE INFORMATION: Exam: CT Maxillofacial Without Contrast, Sinus Exam date and time: 07/18/2022 10:58 PM Age: 26 years old Clinical indication: Pain; Headache; Type not specified TECHNIQUE: Imaging protocol: CT Maxillofacial without contrast. Focus on the sinuses. Radiation optimization: All CT scans at this facility use at least one of these dose optimization techniques: automated exposure control; mA and/or kV adjustment per patient size (includes targeted exams where dose is matched to clinical indication); or iterative reconstruction. COMPARISON: CT HEAD/BRAIN WO CON 07/18/2022 10:55 PM FINDINGS: Frontal sinuses: Normal. No air-fluid levels. Ethmoid sinuses: Normal. No air-fluid levels. Sphenoid sinuses: Normal. No air-fluid levels. Maxillary sinuses: Normal. No air-fluid levels. Ostiomeatal units are patent. Nasal cavity: Unremarkable. Orbital cavities: Orbits are normal. Globes are unremarkable. Bones/joints: Unremarkable. Soft tissues: Unremarkable. IMPRESSION: Clear paranasal sinuses.
[2022-07-18 22:34] LABS: Basophils # 0.1 K/mm3 (0-0.2); Basophils % 1.2 % (0.1-2.0); Eosinophils # 0.2 K/mm3 (0.0-0.4); Eosinophils % 2.9 % (0.1-12.0); Hematocrit 42.4 % (37.0-47.0); Hemoglobin 14.2 g/dL (12.2-16.2); Lymphocytes # 2.5 K/mm3 (0.7-4.5); Lymphocytes % 30.5 % (10-50); Mean Corpuscular HGB Conc 33.5 g/dL (31.8-35.4); Mean Corpuscular Volume 95.8 fl (81-99); Mean Platelet Volume 7.6 fl (7.4-10.4); Monocytes # 0.3 K/mm3 (0.1-1.0); Monocytes % 3.2 % (1.7-9.3); Neutrophils # 5.1 K/mm3 (1.8-7.8); Neutrophils % 62.2 % (37.0-80.0); Platelet Count 325 K/mm3 (142-424); Red Blood Count 4.43 M/mm3 (4.20-5.40); Red Cell Distribution Width 12.1 % (11.5-17.5); White Blood Count 8.2 K/mm3 (4.8-10.8)
[2022-07-18 22:38] LABS: Chloride 103 mmol/L (98-107); Potassium 3.4 mmoL/L (3.5-5.1); Sodium 140 mmol/L (136-145)
[2022-07-18 22:40] LABS: Alanine Aminotransferase 12 U/L (12-78); Alkaline Phosphatase 77 U/L (38-126); Anion Gap 15.4 mEq/L (5-15); Aspartate Amino Transferase 24 U/L (14-36); Bilirubin,Total 0.2 mg/dl (0.2-1.3); Blood Urea Nitrogen 15 mg/dl (7-17); Carbon Dioxide 25 mmol/L (22.0-30.0); Creatinine Clearance Estimated 91 mL/min (50-200); Estimated Glomerular Filt Rate 100 ml/min (>60); GFR (African American) 121 ML/MIN (>60)
[2022-07-18 22:41] LABS: Albumin Level 4.4 g/dl (3.5-5.0); Albumin/Globulin Ratio 1.5 (1.1-1.8); Calcium 8.1 mg/dl (8.4-10.2); Globulin 2.9 g/dL (1.3-3.2); Glucose 94 mg/dl (74-100); Total Protein,Serum 7.3 g/dl (6.3-8.2)
[2022-07-18 22:42] LABS: HCG Qualitative, Serum Negative (Negative)
[2022-07-18 22:46] LABS: C-Reactive Protein 1.4 mg/L (0-4)
[2022-07-18 23:01] LABS: Erythrocyte Sedimentation Rate 15 mm/hr (0-20)
[2022-07-19 00:07] VITALS: BP 110/72; PULSE 80; RESP 16; TEMP 36.9; O2SAT 100
== END 2022-07-19 00:09 | disposition home or self-care (01) ==
PROVIDERS: Emergency Provider Emergency Medicine; PCP Nurse Practitioner Family
DX: R51.9 Headache, unspecified (principal); M54.9 Dorsalgia, unspecified; R05.9 Cough, unspecified; K21.9 Gastro-esophageal reflux disease without esophagitis; J45.909 Unspecified asthma, uncomplicated; Z79.52 Long term (current) use of systemic steroids; Z79.899 Other long term (current) drug therapy; Z88.8 Allergy status to other drugs, medicaments and biological substances
CPT/HCPCS: 70450; 70486; 80053; 84703; 85025; 85651; 86140; 99285

== ENCOUNTER 2022-12-30 08:54 | Emergency (ER) | payer MEDICAID, SELFPAY ==
[2022-12-30] VITALS (7 sets, daily range): BP systolic 110–117; BP diastolic 74–89; PULSE 84–97; RESP 17–28; TEMP 36.5; O2SAT 97–99; BMI 19.5
--- NOTE | 2022-12-30 | ECG_ITS ---
APPROVED REPORT Exam: Resting ECG HR:96 bpm ECG Measurements Heart Rate 96 AXES WV 130 P 53 QRSd 76 QRS 46 QT 349 T 1 QTc 403 Conclusion SINUS RHYTHM NONSPECIFIC T-WAVE ABNORMALITY BORDERLINE ECG UNCONFIRMED REPORT Electronically signed by : Phan Padgett MD 12/31/2022 02:52:44
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
--- NOTE | 2022-12-30 08:59 | PC.NURSE ---
GUILHERME BARFIELD at
--- NOTE | 2022-12-30 09:04 | XR_ITS ---
FINAL REPORT CLINICAL HISTORY: CP, patient states she has a hiatal hernia COMPARISON: 10/26/2019 FINDINGS: A single view of the chest was obtained. Cardiac and mediastinal silhouettes are within normal limits. The lungs are clear. There is no pleural effusion or pneumothorax. IMPRESSION: No acute process on this portable exam. Reviewed, Interpreted and Dictated by Marley Vallejo MD Transcribed by Nahomi Cardenas Authenticated and [facility]
[2022-12-30 09:14] LABS: Microscopic, Urine URINE MICROSCOPIC (MICROSCOPIC)
[2022-12-30 09:16] LABS: Appearance,Urine CLEAR (Clear); Bilirubin,Urine Negative (Negative); Blood, Urine 2+ (Negative); Color,Urine YELLOW (Yellow); Glucose,Urine (UA) Negative (Negative); Ketones,Urine 2+ (Negative); Leukocyte Esterase,Urine TRACE (Negative); Nitrate,Urine Negative (Negative); Protein,Urine Negative (Negative); Urobilinogen,Urine 0.2 EU/dl (0.2)
[2022-12-30 09:17] LABS: Chloride 103 mmol/L (98-107); Potassium 3.4 mmoL/L (3.5-5.1); Sodium 133 mmol/L (136-145)
[2022-12-30 09:19] LABS: Alanine Aminotransferase 17 U/L (12-78); Alkaline Phosphatase 92 U/L (38-126); Anion Gap 13.4 mEq/L (5-15); Aspartate Amino Transferase 25 U/L (14-36); Basophils % 0.3 % (0.1-2.0); Bilirubin,Total 0.9 mg/dl (0.2-1.3); Blood Urea Nitrogen 12 mg/dl (7-17); Carbon Dioxide 20 mmol/L (22.0-30.0); Creatinine Clearance Estimated 91 mL/min (50-200); Eosinophils # 0.4 K/mm3 (0.0-0.4); Eosinophils % 2.5 % (0.1-12.0); Estimated Glomerular Filt Rate 99 ml/min (>60); GFR (African American) 120 ML/MIN (>60); Hematocrit 46.5 % (37.0-47.0); Hemoglobin 14.8 g/dL (12.2-16.2); Lymphocytes # 0.6 K/mm3 (0.7-4.5); Lymphocytes % 3.9 % (10-50); Mean Corpuscular HGB Conc 31.7 g/dL (31.8-35.4); Mean Corpuscular Hemoglobin 31.8 pg (27.0-31.2); Mean Corpuscular Volume 100.2 fl (81-99); Mean Platelet Volume 7.4 fl (7.4-10.4); Monocytes # 0.4 K/mm3 (0.1-1.0); Monocytes % 2.4 % (1.7-9.3); Neutrophils # 14.1 K/mm3 (1.8-7.8); Platelet Count 307 K/mm3 (142-424); Red Blood Count 4.64 M/mm3 (4.20-5.40); Red Cell Distribution Width 12.5 % (11.5-17.5); White Blood Count 15.5 K/mm3 (4.8-10.8)
[2022-12-30 09:20] LABS: Urine Pregnancy, HCG Qual. Negative (Negative)
[2022-12-30 09:20] LABS: Albumin Level 4.6 g/dl (3.5-5.0); Albumin/Globulin Ratio 1.5 (1.1-1.8); Calcium 8.8 mg/dl (8.4-10.2); Globulin 3.1 g/dL (1.3-3.2); Glucose 102 mg/dl (74-100); Lipase 37 U/L (23-300); Total Protein,Serum 7.7 g/dl (6.3-8.2)
[2022-12-30 09:22] LABS: MANUAL DIFFERENTIAL MANUAL DIFFERENTIAL (MANUAL DIFF)
[2022-12-30 09:41] LABS: Troponin I < 0.01 ng/ml (0.00-0.034)
--- NOTE | 2022-12-30 09:44 | PC.NURSE ---
pt up to restroom
[2022-12-30 09:46] LABS: Lymphocytes % 4 % (10-50); Monocytes % 4 % (2-9); Neutrophils % 92 % (42-76); Platelet Estimate Normal; Total Cells Counted 100
[2022-12-30 09:47] LABS: Macrocytosis 1+
== END 2022-12-30 11:12 | disposition home or self-care (01) ==
PROVIDERS: Emergency Provider Student in an Organized Health Care Education/Training Program; PCP Nurse Practitioner Family
DX: R07.9 Chest pain, unspecified (principal); K21.9 Gastro-esophageal reflux disease without esophagitis
CPT/HCPCS: 71045; 80053; 81001; 81025; 83690; 84484; 85007; 85025; 93005; 96360; 99285

== ENCOUNTER 2023-03-24 19:09 | Emergency (ER) | payer MEDICAID, SELFPAY ==
[2023-03-24 19:18] VITALS: BP 124/76; PULSE 109; RESP 22; O2SAT 100; BMI 19.7
--- NOTE | 2023-03-24 19:18 | ECG_ITS ---
APPROVED REPORT Exam: Resting ECG HR:107 bpm ECG Measurements Heart Rate 107 AXES WV 140 P 67 QRSd 81 QRS 81 QT 310 T -72 QTc 372 Conclusion SINUS TACHYCARDIA Infero-lateral T wave inversions previously noted ABNORMAL ECG UNCONFIRMED REPORT Electronically signed by : Phan Padgett MD 03/25/2023 21:32:02
--- NOTE | 2023-03-24 19:24 | XR_ITS ---
PROCEDURE INFORMATION: Exam: XR Chest Exam date and time: 03/24/23 07:28 PM Age: 27 years old Clinical indication: Sternal or substernal pain; Additional info: Chest pain TECHNIQUE: Imaging protocol: Radiologic exam of the chest. Views: 1 view. COMPARISON: CR XR CHEST PORTABLE 12/30/22 09:24 AM FINDINGS: Lungs: Unremarkable. No consolidation. Pleural spaces: Unremarkable. No pleural effusion. No pneumothorax. Heart/Mediastinum: Unremarkable. No cardiomegaly. Bones/joints: Unremarkable. IMPRESSION: No acute findings.
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
[2023-03-24 19:32] LABS: Basophils % 0.1 % (0.1-2.0); Eosinophils # 0.4 K/mm3 (0.0-0.4); Eosinophils % 2.4 % (0.1-12.0); Hemoglobin 14.2 g/dL (12.2-16.2); Lymphocytes # 0.4 K/mm3 (0.7-4.5); Lymphocytes % 2.1 % (10-50); Mean Corpuscular HGB Conc 33.7 g/dL (31.8-35.4); Mean Corpuscular Hemoglobin 31.7 pg (27.0-31.2); Mean Platelet Volume 7.6 fl (7.4-10.4); Monocytes # 0.2 K/mm3 (0.1-1.0); Monocytes % 1.4 % (1.7-9.3); Neutrophils # 16.6 K/mm3 (1.8-7.8); Neutrophils % 94.1 % (37.0-80.0); Platelet Count 295 K/mm3 (142-424); Red Blood Count 4.47 M/mm3 (4.20-5.40); Red Cell Distribution Width 12.2 % (11.5-17.5); White Blood Count 17.7 K/mm3 (4.8-10.8)
[2023-03-24 19:41] LABS: Alanine Aminotransferase 24 U/L (12-78); Albumin Level 4.8 g/dl (3.5-5.0); Albumin/Globulin Ratio 1.5 (1.1-1.8); Alkaline Phosphatase 94 U/L (38-126); Anion Gap 17.4 mEq/L (5-15); Aspartate Amino Transferase 31 U/L (14-36); Bilirubin,Total 0.9 mg/dl (0.2-1.3); Blood Urea Nitrogen 10 mg/dl (7-17); Calcium 8.5 mg/dl (8.4-10.2); Carbon Dioxide 22 mmol/L (22.0-30.0); Chloride 101 mmol/L (98-107); Creatinine Clearance Estimated 80 mL/min (50-200); Estimated Glomerular Filt Rate 85 ml/min (>60); GFR (African American) 103 ML/MIN (>60); Globulin 3.2 g/dL (1.3-3.2); Glucose 121 mg/dl (74-100); HCG Qualitative, Serum Negative (Negative); MANUAL DIFFERENTIAL MANUAL DIFFERENTIAL (MANUAL DIFF); Potassium 3.4 mmoL/L (3.5-5.1); Sodium 137 mmol/L (136-145)
[2023-03-24 19:56] LABS: Troponin I < 0.01 ng/ml (0.00-0.034)
[2023-03-24 21:01] LABS: Eosinophils % 1 % (0-3); Lymphocytes % 2 % (10-50); Monocytes % 1 % (2-9); Neutrophils % 96 % (42-76); Platelet Estimate Normal; RBC Morphology Normal; Total Cells Counted 100
[2023-03-24 23:18] LABS: Troponin I < 0.01 ng/ml (0.00-0.034)
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
[2023-03-24 23:40] VITALS: BP 0/0; PULSE 0; RESP 0; TEMP -17.7; TEMP 0
[2023-03-24 23:45] LABS: Microscopic, Urine URINE MICROSCOPIC (MICROSCOPIC)
[2023-03-24 23:52] LABS: Appearance,Urine CLEAR (Clear); Bilirubin,Urine Negative (Negative); Blood, Urine 1+ (Negative); Color,Urine STRAW (Yellow); Glucose,Urine (UA) Negative (Negative); Ketones,Urine Negative (Negative); Leukocyte Esterase,Urine Negative (Negative); Nitrate,Urine Negative (Negative); Protein,Urine Negative (Negative); Specific Gravity, Urine <= 1.005 (1.005-1.030); Urobilinogen,Urine 0.2 EU/dl (0.2)
[2023-03-25 00:05] LABS: Bacteria,Urine 1+ /lpf
[2023-03-25 00:06] LABS: RBC,Urine Occasional #/hpf (0-3); WBC,Urine Occasional #/hpf (0-3)
== END 2023-03-24 23:43 | disposition left against medical advice (07) ==
PROVIDERS: Emergency Provider Emergency Medicine; PCP Nurse Practitioner Family
DX: R10.13 Epigastric pain (principal); R07.9 Chest pain, unspecified; R06.02 Shortness of breath; R11.2 Nausea with vomiting, unspecified; D72.829 Elevated white blood cell count, unspecified; R79.89 Other specified abnormal findings of blood chemistry; J45.909 Unspecified asthma, uncomplicated; R94.31 Abnormal electrocardiogram [ECG] [EKG]
CPT/HCPCS: 36415; 71045; 80053; 81001; 84484; 84703; 85007; 85025; 85378; 93005; 93041; 96374; 96375; 99285; J0131; J2405

== ENCOUNTER 2023-06-10 19:23 | Emergency (ER) | payer MEDICAID, SELFPAY ==
[2023-06-10 19:24] VITALS: PULSE 89; RESP 20; TEMP 36.9; O2SAT 100; BMI 19.0
[2023-06-10 20:23] VITALS: BP 119/86; PULSE 121; RESP 19; TEMP 37.7; O2SAT 99; BMI 19.0
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
[2023-06-10 20:56] LABS: Influenza A, PCR Not Detected (NotDetected); Influenza B, PCR Not Detected (NotDetected)
[2023-06-10 21:16] LABS: Coronavirus 19, PCR Detected (NotDetected)
[2023-06-10 21:40] LABS: Basophils % 0.1 % (0.1-2.0); Eosinophils # 0.1 K/mm3 (0.0-0.4); Eosinophils % 1.3 % (0.1-12.0); Hematocrit 39.8 % (37.0-47.0); Hemoglobin 13.3 g/dL (12.2-16.2); Lymphocytes # 0.2 K/mm3 (0.7-4.5); Lymphocytes % 2.9 % (10-50); Mean Corpuscular HGB Conc 33.3 g/dL (31.8-35.4); Mean Corpuscular Hemoglobin 32.1 pg (27.0-31.2); Mean Corpuscular Volume 96.3 fl (81-99); Mean Platelet Volume 7.7 fl (7.4-10.4); Monocytes # 0.2 K/mm3 (0.1-1.0); Neutrophils # 7.2 K/mm3 (1.8-7.8); Neutrophils % 93.6 % (37.0-80.0); Platelet Count 231 K/mm3 (142-424); Red Blood Count 4.13 M/mm3 (4.20-5.40); Red Cell Distribution Width 12.6 % (11.5-17.5); White Blood Count 7.7 K/mm3 (4.8-10.8)
--- NOTE | 2023-06-10 21:47 | PC.NURSE ---
PATIENT GIVEN A BLANKET TO PLACE UNDER KNEES, SINCE WE ARE OUT OF PILLOWS AT THIS TIME
[2023-06-10 21:48] LABS: Chloride 106 mmol/L (98-107); Potassium 3.3 mmoL/L (3.5-5.1); Sodium 136 mmol/L (136-145)
[2023-06-10 21:50] LABS: MANUAL DIFFERENTIAL MANUAL DIFFERENTIAL (MANUAL DIFF)
[2023-06-10 21:51] LABS: Alanine Aminotransferase 25 U/L (12-78); Albumin Level 4.2 g/dl (3.5-5.0); Albumin/Globulin Ratio 1.4 (1.1-1.8); Alkaline Phosphatase 87 U/L (38-126); Anion Gap 16.3 mEq/L (5-15); Aspartate Amino Transferase 32 U/L (14-36); Bilirubin,Total 0.7 mg/dl (0.2-1.3); Blood Urea Nitrogen 13 mg/dl (7-17); Calcium 8.7 mg/dl (8.4-10.2); Carbon Dioxide 17 mmol/L (22.0-30.0); Creatinine Clearance Estimated 77 mL/min (50-200); Estimated Glomerular Filt Rate 85 ml/min (>60); GFR (African American) 103 ML/MIN (>60); Glucose 82 mg/dl (74-100); Total Protein,Serum 7.2 g/dl (6.3-8.2)
[2023-06-10 21:57] LABS: HCG Qualitative, Serum Negative (Negative)
[2023-06-10 22:25] LABS: Lymphocytes % 5 % (10-50); Monocytes % 1 % (2-9); Neutrophils % 94 % (42-76); Platelet Estimate Normal; RBC Morphology Normal; Total Cells Counted 100
[2023-06-10 23:05] VITALS: BP 102/56; PULSE 110; RESP 18; TEMP 38; O2SAT 100
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
== END 2023-06-10 23:14 | disposition home or self-care (01) ==
LOC: UTC 20:48 → ER 21:06
PROVIDERS: Nurse Practitioner; Emergency Provider Emergency Medicine; PCP Nurse Practitioner Family
DX: U07.1 COVID-19 (principal); R51.9 Headache, unspecified; M54.50 Low back pain, unspecified; J45.909 Unspecified asthma, uncomplicated; K21.9 Gastro-esophageal reflux disease without esophagitis
CPT/HCPCS: 80053; 84703; 85007; 85025; 87636; 96360; 99285

== ENCOUNTER 2023-12-02 16:37 | Outpatient (CLI) | payer MEDICAID, SELFPAY | END 2023-12-02 23:59 | LOC: LAB.DROPOF 16:39 | PROVIDERS: PCP Nurse Practitioner Family; Visit Provider Nurse Practitioner Family | DX: N30.01 Acute cystitis with hematuria (principal); B96.89 Other specified bacterial agents as the cause of diseases classified elsewhere | CPT/HCPCS: 87086 ==

== ENCOUNTER 2024-02-13 10:53 | Emergency (ER) | payer MEDICAID, SELFPAY ==
[2024-02-13 11:00] VITALS: BP 131/79; PULSE 64; RESP 18; TEMP 36.8; O2SAT 98; BMI 19.2
--- NOTE | 2024-02-13 11:02 | XR_ITS ---
FINAL REPORT CLINICAL HISTORY: smashed thumb in car door x3 days COMPARISON: None FINDINGS: RIGHT HAND: 3 views of the right hand were obtained. There is no acute fracture or dislocation. Visualized joint spaces are normally aligned. Soft tissues are unremarkable. IMPRESSION: No acute bony abnormality. Reviewed, Interpreted and Dictated by Tian Keating III, MD Transcribed by Cordelia German Authenticated and [facility]
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
[2024-02-13 11:57] VITALS: BP 131/79; PULSE 64; RESP 18; TEMP 36.8; O2SAT 98
== END 2024-02-13 11:57 | disposition home or self-care (01) ==
PROVIDERS: Emergency Provider Nurse Practitioner Family; PCP Nurse Practitioner Family
DX: S67.01XA Crushing injury of right thumb, initial encounter (principal); M79.644 Pain in right finger(s); W23.0XXA Caught, crushed, jammed, or pinched between moving objects, initial encounter
CPT/HCPCS: 73130; 99212; 99214; G0463

== ENCOUNTER 2024-05-03 13:31 | Emergency (ER) | payer MEDICAID, SELFPAY ==
[2024-05-03 13:51] VITALS: PULSE 75; RESP 14; TEMP 36.6; O2SAT 100; BMI 18.3
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
[2024-05-03 14:39] VITALS: BP 112/64; PULSE 75; RESP 14; TEMP 36.6
== END 2024-05-03 14:40 | disposition home or self-care (01) ==
PROVIDERS: Emergency Provider Nurse Practitioner Family; PCP Nurse Practitioner Family
DX: H66.93 Otitis media, unspecified, bilateral (principal); H92.03 Otalgia, bilateral
CPT/HCPCS: 99212; 99214; G0463

== ENCOUNTER 2024-07-25 11:13 | Emergency (ER) | payer MEDICAID, SELFPAY ==
[2024-07-25 11:25] VITALS: BP 130/79; PULSE 67; RESP 20; TEMP 36.6; O2SAT 99; BMI 19.9
--- NOTE | 2024-07-25 11:32 | XR_ITS ---
PROCEDURE INFORMATION: Exam: XR Left Hand Exam date and time: 07/25/2024 11:35 AM Age: 28 years old Clinical indication: Injury or trauma; Other: Closed hand in car door; Other: Pain; Additional info: Closed in car door TECHNIQUE: Imaging protocol: Radiologic exam of the left hand. Views: 3 or more views. COMPARISON: No relevant prior studies available. FINDINGS: Bones/joints: No acute fracture or malalignment. No worrisome lytic or blastic osseous lesion. No appreciable cortical erosion or periosteal reaction. Joint spaces are preserved. Soft tissues: No soft tissue abnormality. No joint effusion. IMPRESSION: No acute fracture or malaligment.
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
[2024-07-25 12:25] VITALS: BP 130/79; PULSE 67; RESP 20; TEMP 36.6; O2SAT 99
== END 2024-07-25 12:28 | disposition home or self-care (01) ==
PROVIDERS: Emergency Provider Nurse Practitioner Family; PCP Nurse Practitioner Family
DX: S60.022A Contusion of left index finger without damage to nail, initial encounter (principal); W23.0XXA Caught, crushed, jammed, or pinched between moving objects, initial encounter
CPT/HCPCS: 73130; 99213; G0381

== ENCOUNTER 2025-05-21 11:30 | Outpatient (CLI) | payer MEDICAID, SELFPAY ==
--- OUTSIDE RECORDS SUMMARY | 2025-05-22 10:54 | XMS_ITS | Clinical Summary ---
Author Organization Healthcare Address [address] [place] [address] Care Team Providers Care Creping Machine Operator Name Role Phone Presley Fouzia Wilson NAVA Primary Care Provider [phone] Allergies Active Allergy Reactions Criticality Noted Date Comments Pollen Extract Unknown - Patient st ates they do not know rxn details Low 07/31/2014 Medications nortriptyline (Pamelor) 10 MG capsule TAKE 1-2 CAPSULES AT BEDTIME. 12/18/2020 Active Family History Medical History Relation Name Comments Hyperlipidemia Maternal Grandfather Hypertension Maternal Grandfather Hyperlipidemia Maternal Grandmother Fibromyalgia Mother Hyperlipidemia Mother Arthritis Other 1 Hyperlipidemia Other 2 Relation Name Status Comments Maternal Grandfather Maternal Grandmother Mother Other 1 Other 2 Social History Tobacco Use Types Packs/Day Years Used Date Smoking Tobacco: Never Alcohol Use Standard Drinks/Week Comments No 0 (1 standard drink = 0.6 oz pur e alcohol) Comments Unknown Sex and Gender Information Value Date Recorded Sex Assigned at Not on file Legal Sex Female 6:43 PM EDT Gender Identity Not on file Sexual Orientation Not on file Last Filed Vital Signs Vital Sign Reading Time Taken Comments Blood Pressure 110/80 12/18/2020 2:17 PM EDT Pulse 98 12/18/2020 2:17 PM EDT Temperature 36.4 C (97.6 F) 12/18/2020 2:17 PM EDT Respiratory Rate 18 12/18/2020 2:17 PM EDT Oxygen Saturation - - Inhaled Oxygen Concentration - - Weight 44.9 kg (98 lb 15.8 oz) 12/18/2020 2:17 P M EDT Height 157.5 cm (5' 2 ) 12/18/2020 2:17 PM EDT Body Mass Index 18.1 12/18/2020 2:17 PM EDT Plan of Treatment Health Maintenance Due Date Last Done Comments [facility]-Depression Screening 1993 [facility]-/Child/Adol SDOH Screenings 1993 [facility]-Varicella Vaccines (1 of 2 - 13+ 2-dose series) 2006 [facility]- SDOH Screenings 2011 [facility]-Adult SDOH Screenings 2011 [facility]-DTaP,Tdap,and Td Vaccine s (1 - Tdap) 2012 [facility]-Hepatitis B Vaccines (1 of 3 - 19+ 3-dose series) 2012 [facility]-Pap Smear 2014 HPV Vaccines (1 - 3-dose SCD M series) 2020 [facility]-Cervical Cancer Screening 2023 [facility]-HPV/Cotest 2023 [id number] Vaccine (1 - 20 24-25 season) 2024 [facility]-Influenza Vaccine (#1) 2025 [facility]-Zoster Vaccines (1 of 2) 2043 [facility]-HIB Vaccines Aged Out No longer e ligible based on patient's age to complete this topic [facility]-Hepatitis A Vaccines Aged Out No longer eligible based on patient's age to complete this topic [facility]-IPV Vaccines Aged Out No longer e ligible based on patient's age to complete this topic [facility]-Pneumococcal Vaccine: Pediatrics (0 to 5 Years) and At-Risk Patients (6 to 49 Years) Aged Out No long er eligible based on patient's age to complete this topic [facility]-Rotavirus Vaccines Aged Out No lo nger eligible based on patient's age to complete this topic Insurance [facility] MEDICAID Care Teams Creping Machine Operator Relationship Specialty Start Date End Date Fouzia Sherwood PA [address] [place] [address] PCP - General 02/13/21
== END 2025-05-21 23:59 | disposition home or self-care (01) ==
LOC: LAB.DROPOF 05-22 10:46
PROVIDERS: PCP Nurse Practitioner Obstetrics & Gynecology; Visit Provider Nurse Practitioner Obstetrics & Gynecology
DX: R82.90 Unspecified abnormal findings in urine (principal)
CPT/HCPCS: 87086

== ENCOUNTER 2025-05-23 15:49 | Outpatient (CLI) | payer MEDICAID, SELFPAY ==
--- OUTSIDE RECORDS SUMMARY | 2025-05-27 12:07 | XMS_ITS | Clinical Summary ---
Author Organization Healthcare Address [address] [place] [address] Care Team Providers Care Phototypesetting Equipment Monitor Name Role Phone rPesley Fouzia Wilson NAVA Primary Care Provider [phone] Allergies Active Allergy Reactions Criticality Noted Date [...] 2020 [facility]-Cervical Cancer Screening 2023 [facility]-HPV/Cotest 2023 [id number] Vaccine (1 - 20 24-25 season) 2024 [...] patient's age to complete this topic Insurance [facility] MEDICAID Care Teams Phototypesetting Equipment Monitor Relationship Specialty Start Date End Date Fouzia Sherwood PA [address] [place] [address] PCP - General 02/13/21
== END 2025-05-23 23:59 ==
LOC: LAB.DROPOF 05-27 11:27
PROVIDERS: PCP Obstetrics & Gynecology; Visit Provider Obstetrics & Gynecology
DX: N39.0 Urinary tract infection, site not specified (principal)
CPT/HCPCS: 87086

== ENCOUNTER 2025-09-18 21:17 | Emergency (ER) | payer MEDICAID, SELFPAY ==
[2025-09-18 21:40] VITALS: BP 122/84; PULSE 83; RESP 20; TEMP 36.8; O2SAT 97; BMI 19.7
--- OUTSIDE RECORDS SUMMARY | 2025-09-18 21:44 | XMS_ITS | Clinical Summary ---
Author Organization Healthcare Address [address] [place] [address] Care Team Providers Care Truck Rental Manager Name Role Phone Presley Fouzia Wilson NAVA Primary Care Provider [phone] Allergies Active Allergy Reactions Criticality Noted Date [...] Date Last Done Comments [facility]-Depression Screening 1993 [facility]-Infant/Child/Adol SDOH Screenings 1993 [facility]-Varicella Vaccines (1 of 2 - 13+ 2-dose series) 2006 [facility]- SDOH Screenings 2011 [facility]-Adult SDOH Screenings 2011 [facility]-DTaP,Tdap,and Td Vaccine s (1 - Tdap) 2012 [facility]-Hepatitis B Vaccines (1 of 3 - 19+ 3-dose series) 2012 [facility]-Pap Smear 2014 [facility]-Cervical Cancer Screening 2023 [facility]-HPV/Cotest 2023 [id number] Vaccine ( season) 2025 [facility]-Influenza Vaccine (#1) 2025 [facility]-Zoster Vaccines (1 of 2) 2043 HPV Vaccines (No Doses Required) Completed [facility]-HIB Vaccines Aged Out No longer e [...] patient's age to complete this topic Insurance [facility] MEDICAID Care Teams Truck Rental Manager Relationship Specialty Start Date End Date Fouzia Sherwood PA [address] [place] [address] PCP - General 02/13/21
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
--- NOTE | 2025-09-18 22:00 | CT_ITS ---
PROCEDURE INFORMATION: Exam: CT Abdomen And Pelvis With Contrast Exam date and time: 09/18/2025 11:02 PM Age: 29 years old Clinical indication: Abdominal pain; Additional info: R upper abd/r flank pain TECHNIQUE: Imaging protocol: Computed tomography of the abdomen and pelvis with contrast. Radiation optimization: All CT scans at this facility use at least one of these dose optimization techniques: automated exposure control; mA and/or kV adjustment per patient size (includes targeted exams where dose is matched to clinical indication); or iterative reconstruction. Contrast material: ISOVUE; Contrast volume: 75 ml; Contrast route: IV; COMPARISON: CT ABDOMEN PELVIS W CON 12/09/2020 10:52 PM FINDINGS: Lungs: Lung bases are clear. Liver: Interval development of occasional subcentimeter low-density lesions in the liver too small to characterize but likely cysts. Liver otherwise unremarkable. Gallbladder and biliary ducts: Status post cholecystectomy. No evident bile duct dilatation allowing for prior cholecystectomy. Pancreas: Normal. No ductal dilation. Spleen: Normal. No splenomegaly. Adrenal glands: Normal. No mass. Kidneys and ureters: Normal. No hydronephrosis. Stomach and bowel: Unremarkable. No obstruction. No mucosal thickening. Appendix: Appendectomy. Intraperitoneal space: Unremarkable. No free air. No significant fluid collection. Vasculature: Unremarkable. No abdominal aortic aneurysm. Lymph nodes: Unremarkable. No enlarged lymph nodes. Urinary bladder: Unremarkable as visualized. Reproductive: Unremarkable as visualized. Bones/joints: Unremarkable. No acute fracture. Soft tissues: Unremarkable. IMPRESSION: No acute abnormalities of the abdomen and pelvis. Nonemergent findings as above.
[2025-09-18 22:06] LABS: Microscopic, Urine URINE MICROSCOPIC (MICROSCOPIC)
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
[2025-09-18 22:09] LABS: Hematocrit 42.6 % (37.0-47.0); Hemoglobin 14.6 g/dL (12.2-16.2); Immature Granulocytes % 0.4 %; Mean Corpuscular HGB Conc 34.3 g/dL (31.8-35.4); Mean Corpuscular Hemoglobin 32.4 pg (27.0-31.2); Mean Corpuscular Volume 94.5 fl (81-99); Nucleated Red Blood Cells % 0 %; Platelet Count 322 K/mm3 (142-424); Red Blood Count 4.51 M/mm3 (4.20-5.40); Red Cell Distribution Width-SD 40.2 fL; White Blood Count 10.7 K/mm3 (4.8-10.8)
[2025-09-18 22:11] LABS: Bilirubin,Urine Negative (Negative); Color,Urine YELLOW (Yellow); Glucose,Urine (UA) Negative (Negative); Ketones,Urine TRACE (Negative); Leukocyte Esterase,Urine 1+ (Negative); PH,Urine 7.0 (5.0-8.5); Protein,Urine TRACE (Negative); Specific Gravity, Urine 1.010 (1.005-1.030); Urobilinogen,Urine 0.2 EU/dl (0.2)
[2025-09-18] MEDS: ACETAMINOPHEN 1,000MG/100ML VIAL 1000 MG IV (22:12)
[2025-09-18] MEDS: KETOROLAC 30MG/ML VIAL 30 MG IV (22:13)
[2025-09-18 22:17] LABS: Urine Pregnancy, HCG Qual. Negative (Negative)
[2025-09-18] MEDS: LIDOCAINE 5% TRANSDERMAL PATCH 1 EACH TD (22:17)
[2025-09-18 22:21] LABS: Bacteria,Urine 3+ /lpf; Squamous Epithelial Cell,Urine Occasional #/hpf (0-5)
[2025-09-18 22:55] LABS: Alanine Aminotransferase 25 U/L (12-78); Albumin Level 5.1 g/dl (3.5-5.0); Albumin/Globulin Ratio 1.6 (1.1-1.8); Alkaline Phosphatase 95 U/L (38-126); Anion Gap 15.9 mEq/L (5-15); Aspartate Amino Transferase 28 U/L (14-36); Bilirubin,Total 0.5 mg/dl (0.2-1.3); Blood Urea Nitrogen 19 mg/dl (7-17); Calcium 9.1 mg/dl (8.4-10.2); Carbon Dioxide 18 mmol/L (22.0-30.0); Chloride 107 mmol/L (98-107); Creatinine Clearance Estimated 70 mL/min (50-200); Creatinine,Serum 0.90 mg/dl (0.52-1.04); Estimated Glomerular Filt Rate 73 ml/min (>60); GFR (African American) 88 ML/MIN (>60); Globulin 3.1 g/dL (1.3-3.2); Glucose 133 mg/dl (74-100); Lipase 58 U/L (23-300); Potassium 3.9 mmoL/L (3.5-5.1); Sodium 137 mmol/L (136-145); Total Protein,Serum 8.2 g/dl (6.3-8.2)
[2025-09-18] MEDS: IOPAMIDOL-370 (76%);100ML BOTTLE 75 ML IV (23:03)
[2025-09-18] MEDS: SODIUM CHLORIDE 0.9% 10ML SYR (RAD ONLY) 10 ML IV (23:03)
[2025-09-19 00:26] VITALS: BP 105/69; PULSE 70; RESP 20; TEMP 36.6; O2SAT 100
== END 2025-09-19 00:26 | disposition home or self-care (01) ==
PROVIDERS: Emergency Provider Emergency Medicine
DX: R10.A1 Flank pain, right side (principal); N39.0 Urinary tract infection, site not specified; M54.59 Other low back pain; G89.29 Other chronic pain
CPT/HCPCS: 72131; 74177; 80053; 81001; 81025; 83690; 85025; 87086; 96374; 96375; 99285; J0131; J1885; Q9967

== ENCOUNTER 2025-09-30 12:31 | Outpatient (CLI) | payer MEDICAID, SELFPAY ==
--- OUTSIDE RECORDS SUMMARY | 2025-09-30 12:33 | XMS_ITS | Clinical Summary ---
Author Organization Healthcare Address [address] [place] [address] Care Team Providers Care Highway Worker Name Role Phone Presley Fouzia Wilson NAVA Primary Care Provider [phone] Allergies Active Allergy Reactions Criticality Noted Date [...] 2014 [facility]-Cervical Cancer Screening 2023 [facility]-HPV/Cotest 2023 [id number] Vaccine ( season) 2025 [facility]-Influenza Vaccine (#1) [...] patient's age to complete this topic Insurance [facility] MEDICAID Care Teams Highway Worker Relationship Specialty Start Date End Date Fouzia Sherwood PA [address] [place] [address] PCP - General 02/13/21
--- NOTE | 2025-09-30 12:36 | XR_ITS ---
FINAL REPORT CLINICAL HISTORY: RT UPPER QUADRANT ABDML PAIN COMPARISON: None FINDINGS: A PA view of the chest was obtained. The cardiac and mediastinal silhouettes are within normal limits. The lungs are clear. There is no free air beneath the diaphragm. Upright and supine views of the abdomen reveal a nonspecific, but nonobstructive bowel gas pattern. There is no evidence of small bowel obstruction. No renal stones are identified. Left pelvic calcifications could be phleboliths or distal ureteral stones. No acute osseous abnormalities identified. IMPRESSION: No acute intrathoracic or intraabdominal abnormality. Left pelvic calcifications could be phleboliths or distal ureteral stones. Reviewed, Interpreted and Dictated by Marley Vallejo MD Transcribed by Nahomi Cardenas Authenticated and [facility]
== END 2025-09-30 23:59 | disposition home or self-care (01) ==
LOC: RAD 12:32
PROVIDERS: PCP Nurse Practitioner Family; Visit Provider Nurse Practitioner Family
DX: R10.11 Right upper quadrant pain (principal); R93.5 Abnormal findings on diagnostic imaging of other abdominal regions, including retroperitoneum
CPT/HCPCS: 74021